=== PATIENT | female | born 1965 | race African-American/Black ===

== ENCOUNTER 2016-10-06 07:21 | Emergency (ER) | payer MEDICAID, OTHER ==
[~2016-10-06] VITALS: Ht 149.9 cm; Wt 71.4 kg
[~2016-10-06 07:21] MED LIST: /OL10DISTA PO; ADVA115A INH; ALBU17IN2 INH; ATEN25TA PO; CELE40TA PO; CLAR10CA3 PO; CLON-412 PO; CYCL5TA PO; FERR325T3 PO; FLEX10TA2 PO; GABA300C2 PO; GLUC500T PO; HYDR50TA70 PO; LISI5TAB PO; MINO50CA PO; MULTIVIT PO; PROAAER PO; PROZ40CA PO; RISP0.5T23 PO; RISP2TAB PO; TRAZ150T PO; VICO5TAB OR; VICOTAB PO; VITA400T15 PO; Voltaren PR; WELL100T2 PO; ZOLO100T PO; albuterol INH
[2016-10-06 08:30] LABS: VENOUS BASE EXCESS 0.2 (-2.0-2.0); VENOUS O2 SATURATION 71.8 % (60.0-80.0); VENOUS PARTIAL PRESSURE CO2 50.3 mmHg (38.0-50.0); VENOUS TOTAL CO2 28.3 MEQ/L (24.0-28.0)
[2016-10-06 08:34] LABS: BASO % 0.4 % (0.0-1.0); EOS # 0.2 K/mm3 (0.0-0.50); EOS % 2.2 % (0.0-3.0); LARGE UNSTAINED CELL # 0.2 K/mm3 (0.0-0.4); LARGE UNSTAINED CELL % 1.7 % (0.0-4.0); LYMPH # 4.1 K/mm3 (1.5-4.5); MEAN CORPUSCULAR HEMOGLOBIN 26.9 pg (27.0-33.0); MEAN CORPUSCULAR HGB CONC 32.9 g/dl (32.0-36.5); MEAN CORPUSCULAR VOLUME 81.8 fl (80.0-96.0); MONO # 0.2 K/mm3 (0.0-0.8); MONO % 2.5 % (0.0-5.0); NEUTROPHILS % 52.2 % (36.0-66.0); PLATELET COUNT, AUTOMATED 261 k/mm3 (150-450); RED CELL DISTRIBUTION WIDTH 13.9 % (11.5-14.5); WHITE BLOOD COUNT 9.5 K/mm3 (4.0-10.0)
[2016-10-06 08:49] LABS: ANION GAP 7 MEQ/L (8-16); BLOOD UREA NITROGEN 16 MG/DL (7-18); CALCIUM LEVEL 9.1 MG/DL (8.5-10.1); CARBON DIOXIDE LEVEL 27 MEQ/L (21-32); CHLORIDE LEVEL 108 MEQ/L (98-107); CREATININE FOR GFR 0.83 MG/DL (0.55-1.02); GLOMERULAR FILTRATION RATE > 60.0 (>58); GLUCOSE, FASTING 120 MG/DL (70-105); POTASSIUM SERUM 3.8 MEQ/L (3.5-5.1); SODIUM LEVEL 142 MEQ/L (136-145)
[2016-10-06 08:50] LABS: METHADONE URINE NEGATIVE (NEGATIVE)
[2016-10-06] MEDS ORDERED: KETOROLAC 30 MG/ML VIAL (J1885) IV ONE (09:15)
[2016-10-06] MEDS ORDERED: NAPR500T PO (10:16)
[2016-10-06 10:32] VITALS: BP 148/98
--- NOTE | 2016-10-06 10:33 | REP ---
CERVICAL SPINE SERIES: Full cervical spine series is performed. There is no compression fracture or malalignment. There is no prevertebral soft tissue swelling. There is moderate spurring of C3-C7 with mild disc space narrowing and subchondral sclerosis at the intervening disc spaces. There is diffuse narrowing and sclerosis at the posterior facet joints. Scattered facet joint spurring is also noted. There is bilateral foraminal narrowing at C5-6 right greater than left. IMPRESSION: Diffuse degenerative changes as above with bilateral foraminal narrowing at C5-6. Signed by Shant Fernandez MD 10/06/2016 03:15 P
--- NOTE | 2016-10-06 10:38 | REP ---
LEFT SHOULDER SERIES: Three views of the left shoulder are performed. There is no acute fracture or dislocation. There is mild narrowing at the acromioclavicular joint with mild spurring. IMPRESSION: Mild degenerative changes acromioclavicular joint. No fracture or dislocation. Signed by hSant Fernandez MD 10/06/2016 03:15 P
== END 2016-10-06 10:33 | disposition home or self-care (01) ==
LOC: M ED 08:01
DX: M54.12 Radiculopathy, cervical region (principal); E11.9 Type 2 diabetes mellitus without complications; F11.10 Opioid abuse, uncomplicated; F17.210 Nicotine dependence, cigarettes, uncomplicated
CPT/HCPCS: 72052; 73030; 80048; 80306; 82803; 83036; 85025; 96374; 99283; J1885

== ENCOUNTER → 2016-10-11 | Outpatient (REF) | payer MEDICAID ==
[~2016-10-11] MED LIST changes: +HYDR-4274 PO; -HYDR50TA70 PO; +NAPR500T PO
[2016-10-11 13:53] LABS: FOLATE 10.6 NG/ML
[2016-10-11 14:05] LABS: FREE T4 1.41 NG/DL (0.76-1.46)
== END ==
LOC: M SFHCADAM 08:28
PROVIDERS: ATTEND Physician Assistant
DX: R20.2 Paresthesia of skin (principal)

== ENCOUNTER → 2016-11-09 | Outpatient (CLI) | payer MEDICAID ==
[~2016-11-09] MED LIST changes: +ASPI81TA18; +ATOR40TA75; +BACT800T5 PO; +E-Z-GAS II EFFERVESCENT PACKET (SODIUM BICARB./CITRIC ACID/SIMETHICONE) As Ordered ONE; +E-Z-HD 98% w/w 340GM SUSP BTL As Ordered ONE; +E-Z-PAQUE 96% w/w SUSP 176GM BTL As Ordered ONE; -HYDR-4274 PO; +HYDR50TA70 PO; +METF500T13; +NICO14DI24; +OMEP40CA2; +PROAAER10; +TRAM50TA2; +VITA200015
--- NOTE | 2016-11-09 17:58 | REP ---
Upper GI air contrast The procedure was performed under the direct supervision of Dr. Fernandez. The images were reviewed with Dr. Fernandez The cook helper fruit film shows no organomegaly or pathological masses. The intestinal gas pattern is nonspecific. Liquid barium and gas producing crystals were given in the erect position as well as liquid barium in the prone oblique position in order to perform a double contrast upper GI examination. Additionally liquid barium was given at the end of the examination in order to perform a small bowel follow-through. The oral and pharyngeal stages of deglutition are unremarkable. Esophageal transport is prompt and efficient and there is no esophagitis or stricture mucosal ring or hiatal hernia. Gastroesophageal reflux is not demonstrated on this examination. The stomach bianchi are normally outlined . The rugal folds are smooth and regular. There is no gastritis neoplasm or ulcer disease. The duodenal bianchi are normally outlined . The mucosal folds are smooth and regular. There is no duodenitis pancreatitis peptic ulcer disease or neoplasm. The visualized portion of the proximal small bowel appears normal in course and caliber. The barium column was followed through the small bowel to the level of the terminal ileum. Small bowel transit time is approximately 1 hour. During fluoroscopy gentle palpation shows all loops are freely movable and pliable. There are no fixed or angulated loops. The small bowel mucosal pattern is normal in course and caliber. There is no transition to suggest a partial small-bowel obstruction. Spot filming of the terminal ileum shows it to be unremarkable. Impression: Essentially unremarkable double contrast upper GI and small bowel follow-through examination. 3 minutes and 25 seconds of fluoro time was utilized for this procedure. Reviewed by RANDAL Camacho 11/09/2016 04:00 PSigned by Shant Fernandez MD 11/09/2016 05:42 P
== END ==
LOC: M RAD 09:07
PROVIDERS: ATTEND Surgery
DX: R10.11 Right upper quadrant pain (principal)

== ENCOUNTER 2017-01-16 19:45 | Emergency (ER) | payer MEDICAID, OTHER ==
[~2017-01-16] VITALS: Ht 149.9 cm; Wt 70.9 kg
[~2017-01-16 19:45] MED LIST changes: -ASPI81TA18; -ATOR40TA75; -BACT800T5 PO; -E-Z-GAS II EFFERVESCENT PACKET (SODIUM BICARB./CITRIC ACID/SIMETHICONE) As Ordered ONE; -E-Z-HD 98% w/w 340GM SUSP BTL As Ordered ONE; -E-Z-PAQUE 96% w/w SUSP 176GM BTL As Ordered ONE; -METF500T13; -NICO14DI24; -OMEP40CA2; -PROAAER10; -TRAM50TA2; -VITA200015
[2017-01-16 19:48] VITALS: BP 141/82
[2017-01-16] MEDS ORDERED: TRAM50TA2 (19:54)
[2017-01-16] MEDS ORDERED: METF500T13 (19:54)
[2017-01-16] MEDS ORDERED: PROAAER10 (19:54)
[2017-01-16] MEDS ORDERED: ASPI81TA18 (19:54)
[2017-01-16] MEDS ORDERED: NICO14DI24 (19:54)
[2017-01-16] MEDS ORDERED: VITA200015 (19:54)
[2017-01-16] MEDS ORDERED: OMEP40CA2 (19:54)
[2017-01-16] MEDS ORDERED: ATOR40TA75 (19:54)
[2017-01-16] MEDS ORDERED: LIDOCAINE W/EPINEPHRINE 1% 20ML VIAL As Ordered ONE (22:43)
[2017-01-16] MEDS ORDERED: LIDOCAINE W/EPINEPHRINE 1% 20ML VIAL SC ONE (22:45)
[2017-01-16] MEDS ORDERED: IBUPROFEN 800 MG TAB PO ONE (23:00)
[2017-01-16] MEDS ORDERED: BACT800T5 PO (23:00)
[2017-01-16] MEDS ORDERED: BACTRIM 160MG/800MG DS TAB PO ONE (23:00)
== END 2017-01-16 23:25 | disposition home or self-care (01) ==
LOC: M ED 19:45
DX: L02.415 Cutaneous abscess of right lower limb (principal); Z72.0 Tobacco use

== ENCOUNTER → 2017-03-12 | Outpatient (CLI) | payer OTHER ==
[~2017-03-12] MED LIST changes: +ASPI81TA18; +ATOR40TA75; +BACT800T5 PO; +METF500T13; +NICO14DI24; +OMEP40CA2; +PROAAER10; +TRAM50TA2; +VITA200015
== END ==
LOC: M LAB 08:58
PROVIDERS: ATTEND Physician Assistant
DX: E11.9 Type 2 diabetes mellitus without complications (principal); E78.4 Other hyperlipidemia

== ENCOUNTER 2017-04-19 08:55 | Day surgery (SDC) | payer OTHER ==
[2017-04-19] MEDS: NS 1,000 ML IV (09:15)
[2017-04-19] MEDS ORDERED: PROPOFOL 200 MG/20 ML VIAL As Ordered (10:06)
== END 2017-04-19 10:55 | disposition home or self-care (01) ==
LOC: M OPP 08:55
DX: R10.13 Epigastric pain (principal); R14.0 Abdominal distension (gaseous); Z80.0 Family history of malignant neoplasm of digestive organs; I10 Essential (primary) hypertension; E11.9 Type 2 diabetes mellitus without complications; E78.5 Hyperlipidemia, unspecified; D64.9 Anemia, unspecified; F41.9 Anxiety disorder, unspecified; F32.9 Major depressive disorder, single episode, unspecified; G47.30 Sleep apnea, unspecified; M06.9 Rheumatoid arthritis, unspecified; J45.901 Unspecified asthma with (acute) exacerbation; G43.909 Migraine, unspecified, not intractable, without status migrainosus; Z79.82 Long term (current) use of aspirin; Z79.84 Long term (current) use of oral hypoglycemic drugs; Z79.899 Other long term (current) drug therapy; Z88.0 Allergy status to penicillin
CPT/HCPCS: 45378

== ENCOUNTER → 2017-05-11 | Outpatient (REF) | payer OTHER ==
[2017-05-11 13:43] LABS: APPEARANCE, URINE CLEAR (CLEAR); BACTERIA, URINE AUTO NEGATIVE (NEGATIVE); BILIRUBIN, URINE AUTO NEGATIVE (NEGATIVE); BLOOD, URINE BLOOD NEGATIVE (NEGATIVE); COLOR, URINE YELLOW (YELLOW); GLUCOSE, URINE (UA) AUTO NEGATIVE (NEGATIVE); KETONE, URINE AUTO NEGATIVE (NEGATIVE); LEUKOCYTE ESTERASE, URINE AUTO NEGATIVE (NEGATIVE); MUCUS, URINE SMALL (NEGATIVE); NITRITE, URINE AUTO NEGATIVE (NEGATIVE); PROTEIN, URINE AUTO NEGATIVE (NEGATIVE); RBC, URINE AUTO 0 /HPF (0-3); SPECIFIC GRAVITY URINE AUTO 1.019 (1.002-1.035); SQUAMOUS EPITHELIAL CELL UR AU 0 /HPF (0-6); UROBILINOGEN, URINE AUTO 0.2 mg/dL (0.0-2.0); WBC, URINE AUTO 0 /HPF (0-3)
== END ==
LOC: M SFHCADAM 08:32
DX: N39.3 Stress incontinence (female) (male) (principal)
CPT/HCPCS: 81001

== ENCOUNTER → 2017-08-16 | Outpatient (REF) | payer OTHER ==
[2017-08-16 18:47] LABS: APPEARANCE, URINE HAZY (CLEAR); BACTERIA, URINE AUTO NEGATIVE (NEGATIVE); BILIRUBIN, URINE AUTO NEGATIVE (NEGATIVE); BLOOD, URINE BLOOD NEGATIVE (NEGATIVE); COLOR, URINE YELLOW (YELLOW); GLUCOSE, URINE (UA) AUTO NEGATIVE (NEGATIVE); KETONE, URINE AUTO NEGATIVE (NEGATIVE); LEUKOCYTE ESTERASE, URINE AUTO NEGATIVE (NEGATIVE); MUCUS, URINE SMALL (NEGATIVE); NITRITE, URINE AUTO NEGATIVE (NEGATIVE); PROTEIN, URINE AUTO NEGATIVE (NEGATIVE); RBC, URINE AUTO 1 /HPF (0-3); SPECIFIC GRAVITY URINE AUTO 1.016 (1.002-1.035); SQUAMOUS EPITHELIAL CELL UR AU 1 /HPF (0-6); UROBILINOGEN, URINE AUTO 0.2 mg/dL (0.0-2.0); WBC, URINE AUTO 1 /HPF (0-3)
== END ==
LOC: M SMT 17:17
DX: R39.15 Urgency of urination (principal)

== ENCOUNTER → 2017-08-17 | Outpatient (REF) | payer OTHER ==
[2017-08-17 19:50] LABS: ERYTHROCYTE SEDIMENTATION RATE 3 mm/hr (0-30)
[2017-08-17 19:51] LABS: FOLATE 12.5 NG/ML; TOTAL 25(OH) VITAMIN D 20.2 NG/ML (30.0-100.0); VITAMIN B12 LEVEL 618 PG/ML
[2017-08-17 22:05] LABS: C REACTIVE PROTEIN QUANTITATIV 1.56 MG/DL (0.00-0.30); RHEUMATOID FACTOR QUANT < 10.0 IU/ML (<15.0)
[2017-08-17 22:05] LABS: CPK CREATINE PHOSPHOKINASE 113 U/L (26-192)
[2017-08-22 14:16] LABS: ANA (HEP2) Negative (.); HLA-B27 Negative (.); Lyme Disease IgG/IgM Antibodie <0.91 ISR (0.00-0.90); Lyme Disease IgM Ab Quantitati <0.80 index (0.00-0.79)
== END ==
LOC: M SFHCADAM 13:59
DX: M25.50 Pain in unspecified joint (principal); M54.5 Low back pain

== ENCOUNTER 2017-09-26 20:59 | Emergency (ER) | payer OTHER ==
[2017-09-26 22:01] LABS: BASO % 0.3 % (0.0-1.0); EOS # 0.1 10^3/uL (0.0-0.50); EOS % 0.7 % (0.0-3.0); HEMATOCRIT 41.4 % (36.0-47.0); HEMOGLOBIN 13.4 g/dl (12.0-15.5); IMMATURE GRANULOCYTE % 0.8 % (0-3.0); LYMPH # 2.4 10^3/uL (1.5-4.5); LYMPH % 17.9 % (24.0-44.0); MEAN CORPUSCULAR HEMOGLOBIN 25.3 pg (27.0-33.0); MEAN CORPUSCULAR HGB CONC 32.4 g/dl (32.0-36.5); MEAN CORPUSCULAR VOLUME 78.3 fl (80.0-96.0); MONO # 0.8 10^3/uL (0.0-0.8); NEUTROPHILS # 9.9 10^3/uL (1.8-7.7); NEUTROPHILS % 74.3 % (36.0-66.0); PLATELET COUNT, AUTOMATED 229 10^3/uL (150-450); RED BLOOD COUNT 5.29 10^6/uL (4.00-5.40); RED CELL DISTRIBUTION WIDTH 15.4 % (11.5-14.5); WHITE BLOOD COUNT 13.3 10^3/uL (4.0-10.0)
[2017-09-26] MEDS ORDERED: ISOVUE-370 76% 100ML VIAL (Q9967) As Ordered (22:03)
[2017-09-26] MEDS: NS 1,000 ML IV ×2 (22:04→23:53)
[2017-09-26] MEDS: MORPHINE 2 MG/ML 1ML SYRINGE (J2270) IV ×2 (22:05→23:53)
[2017-09-26 22:15] LABS: CONTROL LINE HCG INT CTR LINE PRESENT; HCG, SERUM QUALITATIVE NEGATIVE (NEGATIVE)
[2017-09-26] MEDS: ACETAMINOPHEN TAB 650MG DOSE (2X325MG) PO (22:21)
[2017-09-26 22:22] LABS: ALBUMIN 3.5 GM/DL (3.2-5.2); ALBUMIN/GLOBULIN RATIO 0.83 (1.00-1.93); ALKALINE PHOSPHATASE 113 U/L (45-117); ALT/SGPT 29 U/L (12-78); ANION GAP 7 MEQ/L (8-16); AST/SGOT 35 U/L (7-37); BILIRUBIN,DIRECT 0.1 MG/DL (0.0-0.2); BILIRUBIN,TOTAL 0.4 MG/DL (0.2-1.0); BLOOD UREA NITROGEN 14 MG/DL (7-18); CALCIUM LEVEL 8.8 MG/DL (8.5-10.1); CARBON DIOXIDE LEVEL 28 MEQ/L (21-32); CHLORIDE LEVEL 102 MEQ/L (98-107); CREATININE FOR GFR 0.78 MG/DL (0.55-1.30); GLOMERULAR FILTRATION RATE > 60.0 (>51); GLUCOSE, FASTING 122 MG/DL (70-100); LIPASE 176 U/L (73-393); POTASSIUM SERUM 3.9 MEQ/L (3.5-5.1); SODIUM LEVEL 137 MEQ/L (136-145); TOTAL PROTEIN 7.7 GM/DL (6.4-8.2)
[2017-09-26 22:23] LABS: LACTIC ACID SEPSIS PROTOCOL 0.9 MMOL/L (0.4-2.0)
[2017-09-26 23:44] LABS: CHLAMYDIA DNA AMPLIFICATION NEGATIVE (NEGATIVE); GC DNA AMPLIFICATION NEGATIVE (NEGATIVE)
[2017-09-26] MEDS: KETOROLAC 30 MG/ML VIAL (J1885) IV (23:53)
[2017-09-27 02:03] LABS: KETONE, URINE AUTO RFX NEGATIVE (NEGATIVE); LEUKOCYTE ESTERASE UR AUTO RFX NEGATIVE (NEGATIVE); NITRITE, URINE AUTO RFX NEGATIVE (NEGATIVE); RBC, URINE AUTO RFX 0 /HPF (0-3); SPECIFIC GRAVITY UR AUTO RFX 1.023 (1.002-1.035); SQUAM EPITHELIAL CELL UR AURFX 0 /HPF (0-6); WBC, URINE AUTO RFX 0 /HPF (0-3)
== END 2017-09-27 02:52 | disposition home or self-care (01) ==
LOC: M ED 20:59
DX: K52.9 Noninfective gastroenteritis and colitis, unspecified (principal); R16.0 Hepatomegaly, not elsewhere classified; K76.0 Fatty (change of) liver, not elsewhere classified; E11.9 Type 2 diabetes mellitus without complications; J45.909 Unspecified asthma, uncomplicated; I10 Essential (primary) hypertension; E78.5 Hyperlipidemia, unspecified; F90.9 Attention-deficit hyperactivity disorder, unspecified type; F33.9 Major depressive disorder, recurrent, unspecified; F41.9 Anxiety disorder, unspecified; Z87.19 Personal history of other diseases of the digestive system; Z98.890 Other specified postprocedural states; Z87.891 Personal history of nicotine dependence; Z88.0 Allergy status to penicillin
CPT/HCPCS: Q9967

== ENCOUNTER → 2017-10-29 | Outpatient (REF) | payer OTHER ==
[2017-10-29 16:01] LABS: BASO % 0.3 % (0.0-1.0); EOS # 0.1 10^3/uL (0.0-0.50); EOS % 1.1 % (0.0-3.0); HEMATOCRIT 46.1 % (36.0-47.0); HEMOGLOBIN 14.4 g/dl (12.0-15.5); IMMATURE GRANULOCYTE % 0.3 % (0-3.0); LYMPH # 4.1 10^3/uL (1.5-4.5); MEAN CORPUSCULAR HEMOGLOBIN 25.4 pg (27.0-33.0); MEAN CORPUSCULAR HGB CONC 31.2 g/dl (32.0-36.5); MEAN CORPUSCULAR VOLUME 81.2 fl (80.0-96.0); MONO # 0.6 10^3/uL (0.0-0.8); MONO % 4.9 % (0.0-5.0); NEUTROPHILS # 6.5 10^3/uL (1.8-7.7); NEUTROPHILS % 57.4 % (36.0-66.0); PLATELET COUNT, AUTOMATED 267 10^3/uL (150-450); RED BLOOD COUNT 5.68 10^6/uL (4.00-5.40); RED CELL DISTRIBUTION WIDTH 15.9 % (11.5-14.5); WHITE BLOOD COUNT 11.3 10^3/uL (4.0-10.0)
[2017-10-29 16:10] LABS: RHEUMATOID FACTOR QUANT < 10.0 IU/ML (<15.0)
[2017-10-29 16:10] LABS: C REACTIVE PROTEIN QUANTITATIV 1.58 MG/DL (0.00-0.30)
[2017-10-29 16:27] LABS: ERYTHROCYTE SEDIMENTATION RATE 5 mm/hr (0-30)
== END ==
LOC: M LABDRAW1 10:49
DX: M51.36 Other intervertebral disc degeneration, lumbar region (principal)

== ENCOUNTER → 2017-11-05 | Outpatient (REF) ==
[2017-11-05 11:09] LABS: RUBELLA IgG QUALITATIVE IMMUNE (IMMUNE)
== END ==
LOC: M LAB 09:34
DX: Z00.00 Encounter for general adult medical examination without abnormal findings (principal)

== ENCOUNTER → 2017-11-08 | Outpatient (REF) | payer OTHER ==
[2017-11-08 13:54] LABS: ESTIMATED AVERAGE GLUCOSE 151 MG/DL (60-110); HEMOGLOBIN A1c 6.9 %
[2017-11-08 14:25] LABS: ALBUMIN 3.6 GM/DL (3.2-5.2); ALBUMIN/GLOBULIN RATIO 0.97 (1.00-1.93); ALKALINE PHOSPHATASE 95 U/L (45-117); ALT/SGPT 25 U/L (12-78); ANION GAP 6 MEQ/L (8-16); AST/SGOT 10 U/L (7-37); BILIRUBIN,TOTAL 0.4 MG/DL (0.2-1.0); BLOOD UREA NITROGEN 19 MG/DL (7-18); CALCIUM LEVEL 9.2 MG/DL (8.5-10.1); CARBON DIOXIDE LEVEL 29 MEQ/L (21-32); CHLORIDE LEVEL 106 MEQ/L (98-107); CREATININE FOR GFR 0.82 MG/DL (0.55-1.30); GLOMERULAR FILTRATION RATE > 60.0 (>51); GLUCOSE, FASTING 99 MG/DL (70-100); POTASSIUM SERUM 4.3 MEQ/L (3.5-5.1); SODIUM LEVEL 141 MEQ/L (136-145); TOTAL PROTEIN 7.3 GM/DL (6.4-8.2)
== END ==
LOC: M SFHCADAM 08:35
DX: E11.9 Type 2 diabetes mellitus without complications (principal); I10 Essential (primary) hypertension
CPT/HCPCS: 80053

== ENCOUNTER 2018-01-10 07:29 | Emergency (ER) | payer OTHER ==
[2018-01-10] MEDS: IBUPROFEN 800 MG TAB PO (08:03)
[2018-01-10] MEDS: FUROSEMIDE 20 MG/2 ML VIAL (J1940) IV (09:07)
[2018-01-10 09:10] LABS: BASO % 0.3 % (0.0-1.0); EOS # 0.2 10^3/uL (0.0-0.50); EOS % 1.4 % (0.0-3.0); HEMATOCRIT 43.1 % (36.0-47.0); HEMOGLOBIN 13.7 g/dl (12.0-15.5); IMMATURE GRANULOCYTE % 0.3 % (0-3.0); LYMPH # 3.4 10^3/uL (1.5-4.5); LYMPH % 28.1 % (24.0-44.0); MEAN CORPUSCULAR HEMOGLOBIN 24.9 pg (27.0-33.0); MEAN CORPUSCULAR HGB CONC 31.8 g/dl (32.0-36.5); MEAN CORPUSCULAR VOLUME 78.2 fl (80.0-96.0); MONO # 0.7 10^3/uL (0.0-0.8); MONO % 5.5 % (0.0-5.0); NEUTROPHILS # 7.8 10^3/uL (1.8-7.7); NEUTROPHILS % 64.4 % (36.0-66.0); PLATELET COUNT, AUTOMATED 272 10^3/uL (150-450); RED BLOOD COUNT 5.51 10^6/uL (4.00-5.40); RED CELL DISTRIBUTION WIDTH 14.8 % (11.5-14.5); WHITE BLOOD COUNT 12.1 10^3/uL (4.0-10.0)
[2018-01-10 09:36] LABS: ANION GAP 10 MEQ/L (8-16); BLOOD UREA NITROGEN 10 MG/DL (7-18); CALCIUM LEVEL 8.9 MG/DL (8.5-10.1); CARBON DIOXIDE LEVEL 27 MEQ/L (21-32); CHLORIDE LEVEL 107 MEQ/L (98-107); CPK CREATINE PHOSPHOKINASE 395 U/L (26-192); CREATININE FOR GFR 0.72 MG/DL (0.55-1.30); GLOMERULAR FILTRATION RATE > 60.0 (>51); GLUCOSE, FASTING 87 MG/DL (70-100); MB/CK RELATIVE INDEX 0.43 (< OR =4); NT-PRO BNP 118 PG/ML (<125); POTASSIUM SERUM 3.8 MEQ/L (3.5-5.1); SODIUM LEVEL 144 MEQ/L (136-145); TROPONIN I < 0.02 NG/ML (< 0.10)
[2018-01-10 09:46] LABS: INFLUENZA A AMPLIFICATION NEGATIVE (NEGATIVE); INFLUENZA B AMPLIFICATION NEGATIVE (NEGATIVE)
[2018-01-10] MEDS: ACETAMINOPHEN 325 MG TAB PO (10:51)
== END 2018-01-10 10:59 | disposition home or self-care (01) ==
LOC: M ED 07:29
DX: J06.9 Acute upper respiratory infection, unspecified (principal); I51.7 Cardiomegaly; J81.1 Chronic pulmonary edema; I10 Essential (primary) hypertension; E11.9 Type 2 diabetes mellitus without complications; J45.909 Unspecified asthma, uncomplicated; E78.00 Pure hypercholesterolemia, unspecified; K21.9 Gastro-esophageal reflux disease without esophagitis; F43.10 Post-traumatic stress disorder, unspecified; F41.9 Anxiety disorder, unspecified; F33.9 Major depressive disorder, recurrent, unspecified; Z79.899 Other long term (current) drug therapy; Z79.82 Long term (current) use of aspirin; Z79.84 Long term (current) use of oral hypoglycemic drugs; Z88.0 Allergy status to penicillin; F17.210 Nicotine dependence, cigarettes, uncomplicated
CPT/HCPCS: J1940

== ENCOUNTER 2018-02-28 16:00 | Outpatient (RCR) | payer OTHER | END 2018-03-15 | LOC: M PT 16:00 | DX: M72.2 Plantar fascial fibromatosis (principal) | CPT/HCPCS: 97140 ==

== ENCOUNTER → 2018-04-29 | Outpatient (REF) | payer OTHER ==
[~2018-04-29] MED LIST changes: -ASPI81TA18; +ASPI81TA52 PO; -ATOR40TA75; +ATOR40TA75 PO; +BANO25TA PO; +BENZ200C70 PO; +CHLO25TA PO; +DOXY100C37; -METF500T13; +METF500T13 PO; +MUCI600T37 PO; +NAPR-50 PO; -NAPR500T PO; +NICO21DI31; +OLAN15TA PO; -OMEP40CA2; +OMEP40CA2 PO; +PRED20TA PO; -PROAAER10; +PROAAER10 INH; +QUET1TAB7 PO; +QUET1TAB8 PO; +SERT25TA PO; +SPIR-10 PO; +VARE05TA PO; -VITA200015; +VITA200015 PO
== END ==
LOC: M LAB REF 13:16
PROVIDERS: ATTEND Physician Assistant Medical
DX: J02.0 Streptococcal pharyngitis (principal)

== ENCOUNTER → 2018-04-29 | Outpatient (CLI) | payer OTHER ==
[~2018-04-29] MED LIST changes: +HYDR-3713 PO
[2018-04-29 13:51] LABS: HEMATOCRIT 44.6 % (36.0-47.0); HEMOGLOBIN 14.1 g/dl (12.0-15.5); MEAN CORPUSCULAR HEMOGLOBIN 24.6 pg (27.0-33.0); MEAN CORPUSCULAR HGB CONC 31.6 g/dl (32.0-36.5); MEAN CORPUSCULAR VOLUME 77.8 fl (80.0-96.0); PLATELET COUNT, AUTOMATED 232 10^3/uL (150-450); RED BLOOD COUNT 5.73 10^6/uL (4.00-5.40); WHITE BLOOD COUNT 9.6 10^3/uL (4.0-10.0)
[2018-04-29 14:26] LABS: BLOOD UREA NITROGEN 13 MG/DL (7-18); CARBON DIOXIDE LEVEL 27 MEQ/L (21-32); CHLORIDE LEVEL 101 MEQ/L (98-107); GLOMERULAR FILTRATION RATE > 60.0 (>51); GLUCOSE, FASTING 99 MG/DL (70-100); POTASSIUM SERUM 4.2 MEQ/L (3.5-5.1); SODIUM LEVEL 136 MEQ/L (136-145)
== END ==
LOC: M LAB 13:17
PROVIDERS: ATTEND Podiatrist Foot & Ankle Surgery
DX: M72.2 Plantar fascial fibromatosis (principal)

== ENCOUNTER 2018-05-08 07:49 | Day surgery (SDC) | payer OTHER ==
[~2018-05-08] VITALS: Ht 175.3 cm; Wt 77.0 kg
[~2018-05-08 07:49] MED LIST changes: +CLINDAMYCIN 600 MG in APPROPRIATE DILUENT 1 EA IV ONE; -HYDR-3713 PO; +LR 1,000 ML IV ONE
[2018-05-08] MEDS ORDERED: LIDOCAINE 1% MDV 20ML VIAL As Ordered ONE (07:50)
[2018-05-08] MEDS ORDERED: dexameTHASONE 4 MG/ML 1ML VIAL (J1100) As Ordered ONE ×2 (07:50→10:18)
[2018-05-08] MEDS ORDERED: BUPIVACAINE HCL 0.5% 30 ML VIAL As Ordered ONE (07:50)
[2018-05-08] MEDS ORDERED: LIDOCAINE 2% INJ 100 MG/5 ML SDV (FOR ANES.) As Ordered ONE (09:32)
[2018-05-08] MEDS ORDERED: fentaNYL 100 MCG/2 ML INJECTION (J3010) As Ordered ONE (09:32)
[2018-05-08] MEDS ORDERED: PROPOFOL 200 MG/20 ML VIAL As Ordered ONE ×2 (09:32→10:30)
[2018-05-08] MEDS ORDERED: MIDAZOLAM INJ 2 MG/2 ML VIAL (J2250) As Ordered ONE (09:33)
[2018-05-08] MEDS ORDERED: TRIAMCINOLONE ACETONIDE SUSP 40 MG/ML VIAL (J3301) As Ordered ONE (10:05)
[2018-05-08] MEDS ORDERED: HYDR-3713 PO (10:57)
[2018-05-08 11:03] VITALS: BP 152/87
--- NOTE | 2018-05-08 13:34 | RO ---
DATE OF PROCEDURE: 05/08/2018 PREPROCEDURE DIAGNOSIS: Bilateral plantar fasciitis and fibroma. POSTPROCEDURE DIAGNOSIS: Bilateral plantar fasciitis and fibroma. PROCEDURE: Bilateral endoscopic plantar fascial release with injection of fibroma right foot. SURGEON: Dr. Jd Barry APPLICATIONS PROJECT MANAGER: None. ANESTHESIA: Monitored anesthesia care with preoperative injection of 30 mL of 1:1 mixture of 1% lidocaine plain and 1/2% Marcaine plain. ESTIMATED BLOOD LOSS: Minimal. MATERIALS: #4-0 nylon. INJECTABLES: 1 mL of Decadron, 4 mg per mL, on both feet; Kenalog 1 mL to fibroma on right. COMPLICATIONS: None. CONDITION: Stable. DESCRIPTION OF PROCEDURE: Teresa Dorantes is a 53-year-old female who presents to [facility] with chronic plantar fasciitis. She has undergone numerous conservative therapies without relief. She also has a fibroma of her right arch. She presents today for surgical correction. The patient site and side were identified and marked in the preoperative area. Consent was reviewed and obtained. The risks, complications and alternatives to the procedure were explained to the patient in detail and all questions were answered. The patient was brought to the operating room and placed on the operating room in supine position. Monitored anesthesia care was delivered by the anesthesia department. Preoperative injection of 30 mL of a 1:1 mixture of 1% lidocaine plain and 0.50% Marcaine plain were injected to both feet. The feet were prepped and draped in normal sterile fashion. The patient received clindamycin preoperatively. Tourniquet were applied to both ankles and inflated to 250 mmHg. A medial stab incision was made at the medial aspect of each ankle to allow creation of the portal. Hemostat was used to find the inferior margin of the plantar fascia. Next, the trocar and cannula were inserted and a lateral portal created allowing exit for the trocar. The trocar was removed leaving cannula in place. The camera was inserted through the lateral portal. The plantar fascia was visualized. Under visualization, the medial 2/3 of the plantar fascia were released using the Endotrac blade, leaving the lateral 1/3 intact. Following this, the camera and cannula were removed. The site was irrigated with saline. Incisions were repaired with #4-0 nylon. 1mL of Decadron was injected in both surgical sites. 1 mL Kenalog was injected to the fibroma on the right arch. Sterile dressings were applied. Tourniquets were deflated. The patient was brought to the post anesthesia care unit (PACU) with vital signs stable and neurovascular status intact. She will be weight bearing as tolerated. She will follow up in the office in two days.
== END 2018-05-08 12:20 | disposition home or self-care (01) ==
LOC: M SDC 07:49
PROVIDERS: ATTEND Podiatrist Foot & Ankle Surgery
DX: M72.2 Plantar fascial fibromatosis (principal); E11.9 Type 2 diabetes mellitus without complications; I10 Essential (primary) hypertension; E78.5 Hyperlipidemia, unspecified; K21.9 Gastro-esophageal reflux disease without esophagitis; Z79.82 Long term (current) use of aspirin; J45.909 Unspecified asthma, uncomplicated; Z79.84 Long term (current) use of oral hypoglycemic drugs; Z88.0 Allergy status to penicillin; F17.210 Nicotine dependence, cigarettes, uncomplicated
CPT/HCPCS: 20550; 29893; C1713; J1100; J2250; J3010; J3301

== ENCOUNTER → 2018-08-09 | Outpatient (REF) | payer OTHER ==
[~2018-08-09] MED LIST changes: -/OL10DISTA PO; -CLINDAMYCIN 600 MG in APPROPRIATE DILUENT 1 EA IV ONE; -CYCL5TA PO; +CYCL5TAB5 PO; +HYDR-3713 PO; -LR 1,000 ML IV ONE; -MINO50CA PO; +MINO50CA27 PO; -NAPR-50 PO; +NAPR-837 PO; -SERT25TA PO; +SERT25TA85 PO; +ZYPR1TAB4 PO
== END ==
LOC: M SFHCPLAZ 18:13
PROVIDERS: ATTEND Dermatology
DX: R21 Rash and other nonspecific skin eruption (principal)

== ENCOUNTER 2018-10-29 23:43 | Emergency (ER) | payer OTHER ==
[~2018-10-29] VITALS: Ht 149.9 cm; Wt 80.0 kg
[2018-10-29 23:44] VITALS: BP 125/62
== END 2018-10-30 01:00 | disposition left against medical advice (07) ==
LOC: M ED 23:43
DX: Z53.21 Procedure and treatment not carried out due to patient leaving prior to being seen by health care provider (principal)

== ENCOUNTER → 2019-03-17 | Outpatient (CLI) | payer BC ==
[~2019-03-17] MED LIST changes: -OMEP40CA2 PO; +OMEP40CA97 PO
--- NOTE | 2019-03-17 12:00 | REP ---
NUCLEAR GASTRIC EMPTYING SCAN: Following the oral administration of 1.1 millicuries technetium 99m sulfur colloid in two scrambled eggs and 6 ounces of water, multiple images of the upper abdomen were performed in the anterior and posterior projections for 90 minutes. Gastric activity is measured. At the end of 90 minutes, 62% of the ingested activity is emptied from the stomach yielding a t-1/2 of 45 minutes, which is normal. IMPRESSION: Normal gastric emptying. Electronically Signed by Shant Fernandez MD 03/17/2019 12:01 P
== END ==
LOC: M RAD 09:18
PROVIDERS: ATTEND Surgery
DX: K31.84 Gastroparesis (principal)
CPT/HCPCS: 78264; A9541

== ENCOUNTER → 2019-03-24 | Outpatient (REF) | payer BC | LOC: M LAB REF 15:05 | PROVIDERS: ATTEND Surgery | DX: R19.7 Diarrhea, unspecified (principal) ==

== ENCOUNTER → 2019-05-08 | Outpatient (CLI) | payer BC ==
[2019-05-08 14:40] LABS: HEMOGLOBIN 13.1 g/dl (12.0-15.5); MEAN CORPUSCULAR HEMOGLOBIN 23.9 pg (27.0-33.0); MEAN CORPUSCULAR HGB CONC 29.8 g/dl (32.0-36.5); MEAN CORPUSCULAR VOLUME 80.4 fl (80.0-96.0); PLATELET COUNT, AUTOMATED 252 10^3/uL (150-450); RED BLOOD COUNT 5.47 10^6/uL (4.00-5.40); WHITE BLOOD COUNT 10.3 10^3/uL (4.0-10.0)
[2019-05-08 14:59] LABS: ALBUMIN 3.7 GM/DL (3.2-5.2); ALT/SGPT 24 U/L (12-78); AMYLASE 92 U/L (25-115); BILIRUBIN,TOTAL 0.3 MG/DL (0.2-1.0); BLOOD UREA NITROGEN 17 MG/DL (7-18); CARBON DIOXIDE LEVEL 29 MEQ/L (21-32); CHLORIDE LEVEL 105 MEQ/L (98-107); CREATININE FOR GFR 0.83 MG/DL (0.55-1.30); GLOMERULAR FILTRATION RATE > 60.0 (>51); GLUCOSE, FASTING 93 MG/DL (70-100); LIPASE 162 U/L (73-393); POTASSIUM SERUM 3.9 MEQ/L (3.5-5.1); SODIUM LEVEL 141 MEQ/L (136-145); TOTAL PROTEIN 7.3 GM/DL (6.4-8.2)
== END ==
LOC: M LAB 13:38
PROVIDERS: ATTEND Surgery
DX: R10.84 Generalized abdominal pain (principal); R19.7 Diarrhea, unspecified

== ENCOUNTER → 2019-07-25 | Outpatient (REF) | payer MEDICAID ==
[~2019-07-25] MED LIST changes: +QUET100T2 PO; -QUET1TAB8 PO
[2019-07-25 12:58] LABS: HEMOGLOBIN 14.6 g/dl (12.0-15.5); MEAN CORPUSCULAR HEMOGLOBIN 25.7 pg (27.0-33.0); MEAN CORPUSCULAR HGB CONC 31.7 g/dl (32.0-36.5); MEAN CORPUSCULAR VOLUME 80.8 fl (80.0-96.0); PLATELET COUNT, AUTOMATED 297 10^3/uL (150-450); RED BLOOD COUNT 5.69 10^6/uL (4.00-5.40); WHITE BLOOD COUNT 12.5 10^3/uL (4.0-10.0)
[2019-07-25 13:23] LABS: HEMOGLOBIN A1c 6.9 %
[2019-07-25 13:34] LABS: ALBUMIN 3.7 GM/DL (3.2-5.2); ALT/SGPT 25 U/L (12-78); BILIRUBIN,TOTAL 0.4 MG/DL (0.2-1.0); BLOOD UREA NITROGEN 21 MG/DL (7-18); CARBON DIOXIDE LEVEL 26 MEQ/L (21-32); CHLORIDE LEVEL 106 MEQ/L (98-107); CHOLESTEROL LEVEL 218 MG/DL (<200); CHOLESTEROL RISK RATIO 4.037 (<5); CREATININE FOR GFR 0.91 MG/DL (0.55-1.30); FREE T4 1.48 NG/DL (0.76-1.46); GLOMERULAR FILTRATION RATE > 60.0 (>51); GLUCOSE, FASTING 118 MG/DL (70-100); HDL CHOLESTEROL 54 MG/DL (>40); LDL CHOLESTEROL 142 MG/DL (<100); NON-HDL-C 164 MG/DL; POTASSIUM SERUM 4.3 MEQ/L (3.5-5.1); SODIUM LEVEL 138 MEQ/L (136-145); TOTAL PROTEIN 7.7 GM/DL (6.4-8.2); TRIGLYCERIDES LEVEL 111 MG/DL (<150)
[2019-07-25 13:36] LABS: TOTAL 25(OH) VITAMIN D 19.7 NG/ML (30.0-100.0)
[2019-07-25 13:55] LABS: MALB URINE SIEMENS 11.1 MG/L; MAU/CREAT RATIO 4.9 MCG/MG (0.0-30.0)
== END ==
LOC: M SFHCADAM 09:25
PROVIDERS: ATTEND Physician Assistant
DX: F17.218 Nicotine dependence, cigarettes, with other nicotine-induced disorders (principal); I10 Essential (primary) hypertension; E11.9 Type 2 diabetes mellitus without complications; J45.30 Mild persistent asthma, uncomplicated

== ENCOUNTER 2020-08-14 08:08 | Inpatient (IN) | payer MEDICAID, OTHER ==
[~2020-08-14] VITALS: Ht 149.9 cm; Wt 75.5 kg
[~2020-08-14 08:08] MED LIST changes: +NICO1DIS12; -NICO21DI31; -QUET1TAB7 PO; +QUET25TA3 PO
[2020-08-14] MEDS ORDERED: methylPREDNISolone 125MG 2ML VIAL IV ONE (08:20)
[2020-08-14] MEDS: COMBIVENT RESPIMAT 100-20MCG INHALER 4GM INH SCH ×3 (08:28→09:33)
--- NOTE | 2020-08-14 08:47 | REP ---
INDICATION: Coronavirus workup COMPARISON: 01/10/2018 TECHNIQUE: Portable AP view of the chest FINDINGS: Subtle scattered primarily perihilar and lower lobe airspace disease suggesting viral pneumonia. Clinical correlation is recommended. No discrete focal consolidation, effusion, or pneumothorax. Skeletal structures intact. Cardiac silhouette is within normal limits for portable technique. IMPRESSION: Cannot exclude subtle patchy bilateral airspace disease raising the possibility of viral pneumonia/COVID-19 disease. Consider noncontrast chest CT for further investigation if warranted. <Electronically signed by Kyle Mcgraw > 08/14/20 0821
[2020-08-14 08:56] LABS: BASO % 0.5 % (0.0-1.0); EOS # 0.1 10^3/uL (0.0-0.5); EOS % 0.9 % (0.0-3.0); HEMATOCRIT 46.7 % (36.0-47.0); HEMOGLOBIN 14.8 g/dl (12.0-15.5); LYMPH # 2.8 10^3/uL (1.5-5.0); MEAN CORPUSCULAR HGB CONC 31.7 g/dl (32.0-36.5); MONO # 0.5 10^3/uL (0.0-0.8); MONO % 5.4 % (2.0-8.0); NEUTROPHILS # 5.4 10^3/uL (1.5-8.5); PLATELET COUNT, AUTOMATED 246 10^3/uL (150-450); RED BLOOD COUNT 5.91 10^6/uL (4.00-5.40); WHITE BLOOD COUNT 8.9 10^3/uL (4.0-10.0)
[2020-08-14] MEDS ORDERED: METF500T13 PO (08:59)
[2020-08-14] MEDS ORDERED: ZOLO100T PO (08:59)
[2020-08-14] MEDS ORDERED: TRIL1TAB PO (08:59)
[2020-08-14] MEDS ORDERED: CHLO25TA PO (08:59)
[2020-08-14] MEDS ORDERED: QUET400T PO (08:59)
[2020-08-14] MEDS ORDERED: LISI10TA22 PO (08:59)
[2020-08-14] MEDS ORDERED: ARIP1TAB6 PO (08:59)
[2020-08-14 09:16] LABS: ALBUMIN 3.5 GM/DL (3.2-5.2); ALT/SGPT 26 U/L (12-78); BLOOD UREA NITROGEN 17 MG/DL (7-18); C REACTIVE PROTEIN QUANTITATIV 2.59 MG/DL (0.00-0.30); CALCIUM LEVEL 8.6 MG/DL (8.5-10.1); CARBON DIOXIDE LEVEL 24 MEQ/L (21-32); CHLORIDE LEVEL 110 MEQ/L (98-107); CK-MB VALUE MASS < 1.0 NG/ML (<3.6); CPK CREATINE PHOSPHOKINASE 251 U/L (26-192); CREATININE FOR GFR 1.05 MG/DL (0.55-1.30); GLOMERULAR FILTRATION RATE > 60.0 (>51); GLUCOSE, FASTING 127 MG/DL (70-100); LDH LACTATE DEHYDROGENASE 256 U/L (84-246); MAGNESIUM LEVEL 1.9 MG/DL (1.8-2.4); NT-PRO BNP 1438 PG/ML (<125); POTASSIUM SERUM 3.8 MEQ/L (3.5-5.1); SODIUM LEVEL 141 MEQ/L (136-145); TOTAL PROTEIN 7.2 GM/DL (6.4-8.2); TROPONIN I 0.02 NG/ML (< 0.10)
[2020-08-14 09:32] LABS: INR 1.05; PROTHROMBIN TIME 13.9 SECONDS (12.5-14.3)
[2020-08-14 09:33] LABS: PARTIAL THROMBOPLASTIN TIME 27.5 SECONDS (24.2-38.5)
[2020-08-14] MEDS ORDERED: FUROSEMIDE 100MG/10ML VIAL (J1940) IV ONE (09:35)
[2020-08-14] MEDS ORDERED: DEXTROSE 50% 50 ML SYRINGE IV PRN (10:25)
[2020-08-14] MEDS ORDERED: GLUCAGON INJ 1MG VIAL SC PRN (10:25)
[2020-08-14] MEDS ORDERED: GLUCOSE 4GM CHEW TABLET PO PRN (10:25)
[2020-08-14] MEDS ORDERED: ACETAMINOPHEN TAB 650MG DOSE (2X325MG) PO PRN (10:25)
--- NOTE | 2020-08-14 10:47 | HPEPDOC ---
General Date of Admission 08/14/20 Date of Service: August 14, 2020 Chief Complaint The patient is a 55-year-old female admitted with a reason for visit of Diff Breathing. Source: Patient Exam Limitations: No limitations History of Present Illness Patient is 55 years old female with past history of hypertension, asthma, hyperlipidemia, type 2 diabetes presented to the hospital with increased shortness of breath. Patient stated that for past week she has been having increased shortness of breath on exertion. Shortness of breath getting progressively worse, patient reported orthopnea and arms swelling. Patient denied fever, chills, nausea, vomiting, diarrhea or dysuria. Patient is active smoker. Patient denied wheezes, sputum production. She reported cough when she lying flat. In the emergency room patient was found to have normal lactic acid, troponin with in normal limit, BNP 1438. EKG did not show any acute ischemic changes. X-ray showed increased interstitial markings. Home Medications Scheduled Aripiprazole (Aripiprazole) 5 Mg Tablet, 5 MG PO DAILY, (Reported) Chlorthalidone (Chlorthalidone) 25 Mg Tablet, 25 MG PO DAILY, (Reported) Lisinopril (Lisinopril) 10 Mg Tablet, 10 MG PO DAILY, (Reported) Oxcarbazepine (Trileptal) 300 Mg Tablet, 300 MG PO BID, (Reported) Quetiapine Fumarate (Quetiapine Fumarate) 400 Mg Tablet, 200 MG PO QHS, (Reported) Sertraline Hcl (Zoloft) 100 Mg Tablet, 150 MG PO DAILY, (Reported) Scheduled PRN Metformin HCl (Metformin HCl) 500 Mg Tablet, 500 MG PO BID PRN for HYPERGLYCEMIA, (Reported) Allergies Coded Allergies: Penicillins (Verified Allergy, Unknown, ITCHING , 10/29/18) Past Medical History Medical History SHORTNESS OF BREATH - FOLLOWED BY [facility], PFT ON 09/22/13 REVEALED DIMINISHED TOTAL LUNG CAPACITY, NO IMPROVEMENT WITH BRONCHODILATOR. TREATED WITH INHALED STEROID/LONG-ACTING BRONCHODILATOR POSITIVE METACHOLINE CHALLENGE - 12/28 - 36% REDUCTION IN FEV1. CONSISTENT WITH ASTHMA. ASTHMA - FOLLOWED BY [facility]ATED IN PAST, BUT NO-SHOWED 5 TIMES SO DISCHARGED FROM PRACTICE 2017 (SEE LETTER) HYPERLIPIDEMIA HYPERTENSION DIABETES MELLITUS TYPE II CHRONIC LOW BACK PAIN ANEMIA PTSD, ANXIETY AND DEPRESSION - FOLLOWED BY [facility] SMALL HIATAL HERNIA FOUND ON CXR 09/22/13. RECURRENT BOILS/ABSCESSES COCAINE ABUSE 2014 - H/O ABNORMAL MAMMOGRAM/US REQUIRING BIOPSY WHICH SHOWED FIBROTIC DISEASE STRESS INCONTINENCE NUCLEAR STRESS TEST 05/08/14 - () - NORMAL STUDY ECHOCARDIOGRAM 09/27 - NORMAL CARDIOMEGALY, CHF PER CXR 12/2017 - REFERRED TO CARDIOLOGY (PATIENT DID NOT KEEP APPT DUE TO TRANSPORTATION ISSUES) PRESUMED IRVING - HAS NOT HAD FORMAL NPSG - NO-SHOWED MULTIPLE TIMES TO PULMONARY Surgical History RSO 10/2010 PARTIAL HYSTERECTOMY FOR FIBROID UTERUS - RIGHT SO 01/2011 C SECTION 1981,1985 HAND SURGERY LEFT HAND 1998 STOMACH BX. H-PYLORI + 2010 COLONOSCOPY/ ENDOSCOPY 2014 COLONOSCOPY - NORMAL (DR. JOSEPH) 04/2017 PLANTAR FASCITIS 05/08/18 Family History FATHER: 74 YRS, UNKNOWN MOTHER: 56 YRS, KILLED IN DRIVE BY SHOOTING SIBLINGS: BROTHER AT 48 - PR, ASTHMA AND COLON CANCER. SISTER - 48 - HEALTHY 1 BROTHER(S) , 1 SISTER(S) . 3 SON(S) , 2 DAUGHTER(S) - HEALTHY. DENIES FAMILYHISTORY OF UROLOGICAL DISEASES. DENIES FAMILY HX OF MELANOMA OR PANCREATIC CANCER. Social History * Smoker: current smoker Alcohol: Denies Drugs: cocaine, marijuana A-FIB/CHADSVASC A-FIB History Current/History of A-Fib/PAF?: No Current PO Anticoag Therapy: No Review of Systems Constitutional: Denies: Chills, Fever Eyes: Denies: Pain ENT: Denies: Head Aches, Ear Pain Skin: Denies: Rash Pulmonary: Reports: Dyspnea Cardiovascular: Denies: Chest Pain, Palpitations Gastrointestinal: Denies: Nausea, Vomiting Genitourinary: Denies: Dysuria Hematologic: Denies: Bruising, Bleeding Excessively Endocrine: Denies: Polydipsia Musculoskeletal: Denies: Neck Pain Neurological: Denies: Weakness Psych: Reports: Mood Normal Physical Examination General Exam: Positive: Alert, Cooperative Eye Exam: Positive: PERRLA ENT Exam: Positive: Atraumatic Neck Exam: Positive: Supple, JVD Chest Exam: Positive: Diminished Heart Exam: Positive: Rate Normal Telemetry: Positive: No significant arrhythmia Abdomen Exam: Positive: Normal bowel sounds Extremity Exam: Negative: Clubbing Skin Exam: Positive: Nl turgor and temperature Neuro Exam: Positive: Strength at 5/5 X4 ext Psych Exam: Positive: Mental status NL Vital Signs Vital Signs Date Time Temp Pulse Resp B/P (MAP) Pulse Ox O2 Delivery O2 Flow Rate FiO2 08/14/20 09:45 152/89 (110) 08/14/20 09:38 109 94 08/14/20 08:41 Nasal Cannula 2.0 08/14/20 08:08 96.8 22 Laboratory Data Labs 24H Laboratory Tests 2 08/14/20 08:27: Immature Granulocyte % (Auto) 0.2, Neutrophils (%) (Auto) 61.0, Lymphocytes (%) (Auto) 32.0, Monocytes (%) (Auto) 5.4, Eosinophils (%) (Auto) 0.9, Basophils (%) (Auto) 0.5, Neutrophils # (Auto) 5.4, Lymphocytes # (Auto) 2.8, Monocytes # (Auto) 0.5, Eosinophils # (Auto) 0.1, Basophils # (Auto) 0.0, Nucleated Red Blood Cells % (auto) 0.0, Prothrombin Time 13.9, Prothromb Time International Ratio 1.05, Activated Partial Thromboplast Time 27.5, Anion Gap 7L, Glomerular Filtration Rate > 60.0, Calcium Level 8.6, Magnesium Level 1.9, Total Bilirubin 1.0, Aspartate Amino Transf (AST/SGOT) 18, Alanine Aminotransferase (ALT/SGPT) 26, Alkaline Phosphatase 109, Lactate Dehydrogenase 256H, Total Creatine Kinase 251H, Creatine Kinase MB < 1.0, Creatine Kinase MB Relative Index 0.40, Troponin I 0.02, C-Reactive Protein, Quantitative 2.59H, AN-Vwy-A-Type Natriuretic Peptide 1438H, Total Protein 7.2, Albumin 3.5, Albumin/Globulin Ratio 0.9L 08/14/20 08:28: Lactic Acid Level 1.2 08/14/20 08:49: POC pH (Misc Panel) 7.396, POC Base Excess (Misc Panel) -3.0L, POC Saturated Percent O2 (Misc) 88L, POC pO2 (Misc Panel) 55.0L, POC pCO2 (Misc Panel) 35.6, POC HCO3 (Misc Panel) 21.8L, POC Total CO2 (Misc Panel) 23.0 CBC/BMP Laboratory Tests 08/14/20 08:27 Microbiology Microbiology 08/14/20 Blood Culture, Received Pending 08/14/20 Respiratory Virus Panel (PCR) ([facility]I) - Final, Complete 08/14/20 Blood Culture, Received Pending Assessment/Plan Patient is 55 years old female with past history of hypertension, asthma, hyperlipidemia, type 2 diabetes presented to the hospital with increased shortness of breath. Patient stated that for past week she has been having increased shortness of breath on exertion. Shortness of breath getting progr essively worse, patient reported orthopnea and arms swelling. Patient denied fever, chills, nausea, vomiting, diarrhea or dysuria. Patient is active smoker. Patient denied wheezes, sputum production. She reported cough when she lying flat. In the emergency room patient was found to have normal lactic acid, troponin with in normal limit, BNP 1438. EKG did not show any acute ischemic changes. X-ray showed increased interstitial markings. Problems (1) CHF (congestive heart failure) Status: Acute Problem Text: Patient has positive JVD, orthopnea, elevated BNP Echo I's and O's Salt restriction Lasix IV every 8 hours (2) Type 2 diabetes mellitus Status: Chronic Problem Text: Insulin sliding scale Diabetes diet (3) Hypertension Status: Chronic Problem Text: Continue home cardioprotective medications I increased the dose of lisinopril to 20 mg for better control (4) Hyperlipidemia Status: Chronic Problem Text: I started atorvastatin (5) Depression Problem Text: Continue home medications (6) Asthma Status: Chronic Problem Text: Not in acute exacerbation Continue inhalers Plan / VTE VTE Prophylaxis Ordered?: Yes FINA KHAN DO August 14, 2020 10:47
[2020-08-14] MEDS: ALBUTEROL SULFATE 2.5 MG/0.5 ML INH NEB SOLN INH SCH ×5 (11:50→23:48)
[2020-08-14] MEDS: HumaLOG INSULIN (NovoLOG) PER UNIT SC SCH ×3 (12:00→20:19)
--- NOTE | 2020-08-14 13:22 | ECGEPIP ---
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
[2020-08-14 15:02] VITALS: BP 147/84
[2020-08-14] MEDS: DOCUSATE SODIUM 100MG CAPSULE PO SCH ×2 (15:26→20:10)
[2020-08-14] MEDS: FUROSEMIDE 40MG/4ML VIAL (J1940) IV SCH (15:51)
[2020-08-14] MEDS: SERTRALINE HCL 50 MG TAB PO SCH (15:52)
[2020-08-14] MEDS: ENOXAPARIN 40MG/0.4ML SYRINGE (J1650 PER 10MG) SC SCH (15:52)
[2020-08-14] MEDS: CHLORTHALIDONE 25 MG TAB PO SCH (18:00)
[2020-08-14] MEDS: OXcarbazepine 300 MG TAB PO SCH ×2 (18:02→20:10)
[2020-08-14] MEDS: QUEtiapine FUMARATE 200 MG TAB PO SCH (20:10)
[2020-08-14] MEDS: ATORVASTATIN 20 MG TAB PO SCH (20:10)
[2020-08-14] MEDS: SYMBICORT 160/4.5MCG INHALER 6GM INH SCH (20:35)
[2020-08-14 21:00] VITALS: BP 142/77
[2020-08-14] MEDS ORDERED: ASPIRIN 325 MG TAB PO ONE (21:50)
[2020-08-14 21:56] LABS: CPK CREATINE PHOSPHOKINASE 259 U/L (26-192); MB/CK RELATIVE INDEX 0.39 (< OR =4); TROPONIN I < 0.02 NG/ML (< 0.10)
--- NOTE | 2020-08-14 22:08 | IPNPDOC ---
Text Note Date of Service The patient was seen on 08/14/20. NOTE Alerted by nursing staff at approx 2030 that patient was complaining of contin ued 9/10 left side chest pain and tightness. I evaluated the patient at this time who was complaining of chest pain, tightness and continued sob consistent with her admitting dx. Patient found to be tachy on exam and mildly hypoxic. Will order cta chest. Stat ekg ordered at this time showed impressive t wave depression in leads v3-5, significantly worse than EKG taken in the ed this morning at 0800. Repeat cardiac panel negative. Aspirin given. Pt already on o2 via nasal canula. Will repeat troponins and ekg and 0400 and await results of cta chest. VS,Fishbone, I+O VS, Fishbone, I+O Laboratory Tests 08/14/20 08:27 Vital Signs Date Time Temp Pulse Resp B/P (MAP) Pulse Ox O2 Delivery O2 Flow Rate FiO2 08/14/20 15:02 98.2 103 18 147/84 (105) 96 Room Air 08/14/20 08:41 2.0 RICK ACUNA August 14, 2020 22:07
[2020-08-14] MEDS ORDERED: ISOVUE-370 76% 100ML VIAL As Ordered ONE (22:14)
--- NOTE | 2020-08-14 22:46 | REPVR ---
PROCEDURE INFORMATION: Exam: CTA Chest With Contrast Exam date and time: 08/14/2020 10:18 PM Age: 55 years old Clinical indication: Chest pain; Additional info: Chest pain, hypoxia, tachycardia TECHNIQUE: Imaging protocol: Computed tomographic angiography of the chest with contrast. 3D rendering (Not supervised by radiologist): MIP and/or 3D reconstructed images were created by the technologist. Radiation optimization: All CT scans at this facility use at least one of these dose optimization techniques: automated exposure control; mA and/or kV adjustment per patient size (includes targeted exams where dose is matched to clinical indication); or iterative reconstruction. Contrast material: ISOVUE 370; Contrast volume: 75 ml; Contrast route: INTRAVENOUS (IV); COMPARISON: CR PORTABLE CHEST X-RAY 08/14/2020 8:22 AM FINDINGS: Pulmonary arteries: The main pulmonary artery measures 24 mm. No pulmonary embolism is identified. Aorta: The ascending thoracic aorta measures 23 mm. Lungs: Coarse interstitium and mild scattered fibro-atelectatic change and pulmonary infiltrates. Pleural spaces: Unremarkable. No pneumothorax. No pleural effusion. Heart: Trace pericardial fluid. Lymph nodes: Upper normal right hilar and anterior mediastinal nodes. Bones/joints: Unremarkable. No acute fracture. Soft tissues: Unremarkable. IMPRESSION: 1. Coarse interstitium with mild scattered fibro-atelectatic change, greatest in the left lower lobe and scattered bilateral pulmonary infiltrates. 2. Borderline upper normal right hilar and mediastinal nodes which may be reactive. 3. Trace pericardial fluid. 4. Otherwise negative CTA chest. No pulmonary embolism is identified. Electronically signed by: Mario Allan On 08/14/2020 22:46:39 PM
[2020-08-15] MEDS: FUROSEMIDE 40MG/4ML VIAL (J1940) IV SCH ×3 (00:08→16:00)
[2020-08-15] MEDS: ALBUTEROL SULFATE 2.5 MG/0.5 ML INH NEB SOLN INH SCH ×5 (03:07→19:20)
[2020-08-15 04:40] LABS: HEMATOCRIT 44.9 % (36.0-47.0); HEMOGLOBIN 14.5 g/dl (12.0-15.5); MEAN CORPUSCULAR HGB CONC 32.3 g/dl (32.0-36.5); MEAN CORPUSCULAR VOLUME 77.4 fl (80.0-96.0); PLATELET COUNT, AUTOMATED 246 10^3/uL (150-450); WHITE BLOOD COUNT 8.8 10^3/uL (4.0-10.0)
[2020-08-15 05:17] LABS: ALBUMIN 3.6 GM/DL (3.2-5.2); ALT/SGPT 24 U/L (12-78); BILIRUBIN,TOTAL 0.4 MG/DL (0.2-1.0); BLOOD UREA NITROGEN 22 MG/DL (7-18); CALCIUM LEVEL 9.4 MG/DL (8.5-10.1); CARBON DIOXIDE LEVEL 28 MEQ/L (21-32); CHLORIDE LEVEL 104 MEQ/L (98-107); CK-MB VALUE MASS < 1.0 NG/ML (<3.6); CPK CREATINE PHOSPHOKINASE 220 U/L (26-192); CREATININE FOR GFR 1.38 MG/DL (0.55-1.30); GLOMERULAR FILTRATION RATE 51.6 (>51); GLUCOSE, FASTING 165 MG/DL (70-100); MB/CK RELATIVE INDEX 0.45 (< OR =4); POTASSIUM SERUM 3.7 MEQ/L (3.5-5.1); SODIUM LEVEL 139 MEQ/L (136-145); TOTAL PROTEIN 7.7 GM/DL (6.4-8.2); TROPONIN I < 0.02 NG/ML (< 0.10)
[2020-08-15 06:00] VITALS: BP 108/55
[2020-08-15] MEDS: SYMBICORT 160/4.5MCG INHALER 6GM INH SCH ×2 (07:09→19:20)
[2020-08-15] MEDS: HumaLOG INSULIN (NovoLOG) PER UNIT SC SCH ×4 (08:22→20:16)
[2020-08-15] MEDS: ENOXAPARIN 40MG/0.4ML SYRINGE (J1650 PER 10MG) SC SCH (08:22)
[2020-08-15] MEDS: DOCUSATE SODIUM 100MG CAPSULE PO SCH ×2 (08:23→20:42)
[2020-08-15] MEDS: SERTRALINE HCL 50 MG TAB PO SCH (08:23)
[2020-08-15] MEDS: CHLORTHALIDONE 25 MG TAB PO SCH (08:23)
[2020-08-15] MEDS: OXcarbazepine 300 MG TAB PO SCH ×2 (08:23→20:42)
--- NOTE | 2020-08-15 11:44 | IPNPDOC ---
Text Note Date of Service The patient was seen on 08/15/20. NOTE Subjective: During the night patient complains of substernal chest pain, reso lved in a few hours. Patient stated that her breathing improved. Objective: GENERAL APPEARANCE: NAD HEENT: no scleral icterus, no JVD, EOMI CARDIOVASCULAR: S1S2 LUNGS: CTA ABDOMEN: soft & not tender w palpitation MUSCULOSKELETAL: no cyanosis, no swelling INTEGUMENT: no generalized pallor NEUROLOGICAL: cranial nerve function from 2-12 intact intact, follows commands, speech not dysarthric Assessment/Plan Patient is 55 years old female with past history of hypertension, asthma, hy perlipidemia, type 2 diabetes presented to the hospital with increased shortness of breath. Patient stated that for past week she has been having increased shortness of breath on exertion. Shortness of breath getting progressively worse, patient reported orthopnea and arms swelling. Patient denied fever, chills, nausea, vomiting, diarrhea or dysuria. Patient is active smoker. Patient denied wheezes, sputum production. She reported cough when she lying flat. In the emergency room patient was found to have normal lactic acid, troponin with in normal limit, BNP 1438. EKG did not show any acute ischemic changes. X-ray showed increased interstitial markings. Problems (1) CHF (congestive heart failure) Patient has positive JVD, orthopnea, elevated BNP Echo pending I's and O's Salt restriction Lasix IV every 8 hours Patient developed good urine output (2) Type 2 diabetes mellitus Insulin sliding scale Diabetes diet (3) Hypertension Continue home cardioprotective medications (4) Hyperlipidemia continue atorvastatin (5) Depression Continue home medications (6) Asthma Not in acute exacerbation Continue inhalers VS,Fishbone, I+O VS, Fishbone, I+O Laboratory Tests 08/15/20 04:31 Vital Signs Date Time Temp Pulse Resp B/P (MAP) Pulse Ox O2 Delivery O2 Flow Rate FiO2 08/15/20 09:00 2.0 08/15/20 08:54 104/70 08/15/20 06:00 97.1 98 18 93 Nasal Cannula I&O- Last 24 Hours up to 6 AM 08/15/20 06:00 Intake Total 390 ml Output Total 2550 ml Balance -2160 ml FINA KHAN DO August 15, 2020 11:44
--- NOTE | 2020-08-15 13:27 | ECGEPIP ---
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
--- NOTE | 2020-08-15 13:30 | ECGEPIP ---
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
[2020-08-15 14:00] VITALS: BP 107/65
[2020-08-15] MEDS: QUEtiapine FUMARATE 200 MG TAB PO SCH (20:42)
[2020-08-15] MEDS: ATORVASTATIN 20 MG TAB PO SCH (20:43)
[2020-08-15 22:00] VITALS: BP 128/73
[2020-08-16] VITALS (9 sets, daily range): BP systolic 88–107; BP diastolic 51–66
[2020-08-16] MEDS: ALBUTEROL SULFATE 2.5 MG/0.5 ML INH NEB SOLN INH SCH ×4 (00:44→11:04)
[2020-08-16] MEDS: FUROSEMIDE 40MG/4ML VIAL (J1940) IV SCH ×3 (00:59→16:00)
[2020-08-16 06:14] LABS: HEMATOCRIT 48.2 % (36.0-47.0); HEMOGLOBIN 15.5 g/dl (12.0-15.5); MEAN CORPUSCULAR HEMOGLOBIN 25.1 pg (27.0-33.0); MEAN CORPUSCULAR HGB CONC 32.2 g/dl (32.0-36.5); PLATELET COUNT, AUTOMATED 247 10^3/uL (150-450); RED BLOOD COUNT 6.18 10^6/uL (4.00-5.40); WHITE BLOOD COUNT 9.5 10^3/uL (4.0-10.0)
[2020-08-16 06:29] LABS: ALBUMIN 3.9 GM/DL (3.2-5.2); BILIRUBIN,TOTAL 0.5 MG/DL (0.2-1.0); CALCIUM LEVEL 10.1 MG/DL (8.5-10.1); CREATININE FOR GFR 1.44 MG/DL (0.55-1.30); GLOMERULAR FILTRATION RATE 49.1 (>51); MAGNESIUM LEVEL 2.1 MG/DL (1.8-2.4); POTASSIUM SERUM 3.6 MEQ/L (3.5-5.1)
[2020-08-16 06:43] LABS: LYMPHOCYTES 55 % (16-44); MONOCYTES 3 % (0-5); NEUTROPHILS 42 % (28-66)
[2020-08-16 06:44] LABS: PLATELET ESTIMATE NORMAL (NORMAL)
[2020-08-16] MEDS: SYMBICORT 160/4.5MCG INHALER 6GM INH SCH ×2 (07:21→20:24)
[2020-08-16] MEDS: HumaLOG INSULIN (NovoLOG) PER UNIT SC SCH ×4 (07:30→21:00)
[2020-08-16] MEDS: DOCUSATE SODIUM 100MG CAPSULE PO SCH ×2 (10:40→21:37)
[2020-08-16] MEDS: CHLORTHALIDONE 25 MG TAB PO SCH (10:40)
[2020-08-16] MEDS: SERTRALINE HCL 50 MG TAB PO SCH (10:42)
[2020-08-16] MEDS: OXcarbazepine 300 MG TAB PO SCH ×2 (10:42→21:37)
[2020-08-16] MEDS: ENOXAPARIN 40MG/0.4ML SYRINGE (J1650 PER 10MG) SC SCH (10:43)
--- NOTE | 2020-08-16 13:57 | IPNPDOC ---
Text Note Date of Service The patient was seen on 08/16/20. NOTE Subjective: No any acute events overnight. Patient denied fever, chills, vomit ing. Urine output 380 mL overnight Objective: GENERAL APPEARANCE: NAD HEENT: no scleral icterus, no JVD, EOMI CARDIOVASCULAR: S1S2 LUNGS: CTA ABDOMEN: soft & not tender w palpitation MUSCULOSKELETAL: no cyanosis, no swelling INTEGUMENT: no generalized pallor NEUROLOGICAL: cranial nerve function from 2-12 intact intact, follows commands, speech not dysarthric Assessment/Plan Patient is 55 years old female with past history of hypertension, asthma, hyperlipidemia, type 2 diabetes presented to the hospital with increased shortness of breath. Patient stated that for past week she has been having increased shortness of breath on exertion. Shortness of breath getting progressively worse, patient reported orthopnea and arms swelling. Patient denied fever, chills, nausea, vomiting, diarrhea or dysuria. Patient is active smoker. Patient denied wheezes, sputum production. She reported cough when she lying flat. In the emergency room patient was found to have normal lactic acid, troponin with in normal limit, BNP 1438. EKG did not show any acute ischemic changes. X-ray showed increased interstitial markings. Problems (1) CHF (congestive heart failure) Patient has positive JVD, orthopnea, elevated BNP Echo pending I's and O's Salt Lasix IV every 8 hours Patient developed good urine output for past 24 hours Fluid restriction (2) Type 2 diabetes mellitus Insulin sliding scale Diabetes diet (3) Hypertension Continue home cardioprotective medications (4) Hyperlipidemia continue atorvastatin (5) Depression Continue home medications (6) Asthma Not in acute exacerbation Continue inhalers VS,Fishbone, I+O VS, Fishbone, I+O Laboratory Tests 08/16/20 05:49 Vital Signs Date Time Temp Pulse Resp B/P (MAP) Pulse Ox O2 Delivery O2 Flow Rate FiO2 08/16/20 11:00 92 Nasal Cannula 1.0 08/16/20 10:41 115/68 08/16/20 06:59 97.9 94 20 I&O- Last 24 Hours up to 6 AM 08/16/20 06:00 Intake Total 870 ml Output Total 1350 ml Balance -480 ml FINA KHAN DO August 16, 2020 13:57
[2020-08-16] MEDS ORDERED: ALBUTEROL SULFATE 2.5 MG/0.5 ML INH NEB SOLN INH PRN (14:50)
[2020-08-16] MEDS: IPRATROPIUM 0.5MG/ALBUTEROL 2.5MG INH SOL UD 3ML (DUONEB) NEB SCH ×2 (15:06→20:00)
[2020-08-16] MEDS ORDERED: NS 500 ML IV ONE ×2 (18:55→21:50)
[2020-08-16] MEDS: ONDANSETRON 4MG/2ML VIAL IV PRN (19:08)
[2020-08-16] MEDS: QUEtiapine FUMARATE 200 MG TAB PO SCH (21:37)
[2020-08-16] MEDS: ATORVASTATIN 20 MG TAB PO SCH (21:37)
[2020-08-17] MEDS: IPRATROPIUM 0.5MG/ALBUTEROL 2.5MG INH SOL UD 3ML (DUONEB) NEB SCH ×4 (02:51→20:20)
[2020-08-17 06:00] VITALS: BP_SYST 121; BP_SYST 90; BP_DIAS 54; BP_DIAS 73
[2020-08-17 06:09] LABS: BASO % 0.2 % (0.0-1.0); EOS # 0.1 10^3/uL (0.0-0.5); EOS % 0.8 % (0.0-3.0); HEMATOCRIT 46.5 % (36.0-47.0); HEMOGLOBIN 14.4 g/dl (12.0-15.5); LYMPH # 3.9 10^3/uL (1.5-5.0); LYMPH % 41.3 % (24.0-44.0); MEAN CORPUSCULAR VOLUME 80.6 fl (80.0-96.0); MONO # 0.7 10^3/uL (0.0-0.8); MONO % 7.6 % (2.0-8.0); NEUTROPHILS # 4.7 10^3/uL (1.5-8.5); NEUTROPHILS % 49.8 % (36.0-66.0); PLATELET COUNT, AUTOMATED 236 10^3/uL (150-450); RED BLOOD COUNT 5.77 10^6/uL (4.00-5.40); WHITE BLOOD COUNT 9.5 10^3/uL (4.0-10.0)
[2020-08-17 06:43] LABS: ALBUMIN 3.4 GM/DL (3.2-5.2); BILIRUBIN,TOTAL 0.5 MG/DL (0.2-1.0); CREATININE FOR GFR 2.95 MG/DL (0.55-1.30); GLOMERULAR FILTRATION RATE 21.5 (>51); MAGNESIUM LEVEL 2.3 MG/DL (1.8-2.4); POTASSIUM SERUM 3.8 MEQ/L (3.5-5.1); TOTAL PROTEIN 7.3 GM/DL (6.4-8.2)
[2020-08-17] MEDS: SYMBICORT 160/4.5MCG INHALER 6GM INH SCH ×2 (07:14→20:20)
[2020-08-17] MEDS ORDERED: NS 1,000 ML IV ONE (07:45)
[2020-08-17] MEDS: HumaLOG INSULIN (NovoLOG) PER UNIT SC SCH ×4 (08:06→21:00)
[2020-08-17] MEDS: DOCUSATE SODIUM 100MG CAPSULE PO SCH ×2 (08:07→21:35)
[2020-08-17] MEDS: SERTRALINE HCL 50 MG TAB PO SCH (08:07)
[2020-08-17] MEDS: OXcarbazepine 300 MG TAB PO SCH ×2 (08:08→21:35)
[2020-08-17] MEDS: ENOXAPARIN 40MG/0.4ML SYRINGE (J1650 PER 10MG) SC SCH (08:08)
[2020-08-17 08:15] VITALS: BP 96/52
[2020-08-17 09:46] VITALS: BP 107/59
--- NOTE | 2020-08-17 10:59 | ECHO ---
DATE OF PROCEDURE: 08/16/2020 Age: 55 Gender: Female Height: 150 cm Weight: 76 kg REFERRING PHYSICIAN: Kameron Jimenez DO INDICATION: Congestive heart failure. MEASUREMENTS: IVS 1.1 cm LV 5.3 cm LVPW 1.1 cm LA 3.5 cm Aorta 2.6 cm IVC 1.1 cm Mitral E wave velocity 84 cm/s Mitral A wave 72 cm/s E prime septal 6.1 cm/s E prime lateral 3.3 cm/s FINDINGS: This study is of difficult technical quality. The patient is in sinus rhythm with wide QRS complex. Left ventricle has normal size. There is a global left ventricular systolic dysfunction with estimated LVEF around 30% to 35%. Right ventricle was relatively poorly visualized, but appears mildly dilated, but normally contractile. Both atria appear gross normal. Aortic, mitral, and tricuspid valves appear normal. Pulmonic valve was not well seen. Trivial pericardial effusion is noted. Inferior vena cava is of relatively small caliber and appropriately collapses with inspiration, indicative of normal or possibly even low central venous pressure. Aortic root is normal. Aortic arch was not well seen. Abdominal aorta appears normal. Doppler interrogation of the aortic valve reveals no stenosis or insufficiency. There is trace mitral insufficiency. Tricuspid valve is functionally competent. Mitral inflow pattern and tissue Doppler imaging of the mitral annulus revealed grade 2 diastolic dysfunction (mitral E wave velocity 84, A wave 72, E prime septal 6.1, E prime lateral 3.3). CONCLUSIONS: 1. Study is of fair technical quality. The patient is in sinus rhythm with wide QRS complex. 2. Normal LV size with severe global hypokinesis and overall estimated LVEF around 30% to 35%. Grade 2 diastolic dysfunction. 3. No significant valvular disease 4. Normal central venous pressure. 5. Unable to estimate pulmonary artery pressure. 6. Trivial pericardial effusion. COMMENTS: Study favors nonischemic over ischemic etiology of the patients cardiomyopathy. MTDD
[2020-08-17 11:23] VITALS: BP 98/55
--- NOTE | 2020-08-17 11:57 | IPNPDOC ---
Text Note Date of Service The patient was seen on 08/17/20. NOTE Subjective: No any acute events overnight. Patient developed hypotension in the morning 90/54. Patient denied any chest pain or palpitations. For past 24 hours urine output on 3 L Objective: GENERAL APPEARANCE: NAD HEENT: no scleral icterus, no JVD, EOMI CARDIOVASCULAR: S1S2 LUNGS: CTA ABDOMEN: soft & not tender w palpitation MUSCULOSKELETAL: no cyanosis, no swelling INTEGUMENT: no generalized pallor NEUROLOGICAL: cranial nerve function from 2-12 intact intact, follows commands, speech not dysarthric Assessment/Plan Patient is 55 years old female with past history of hypertension, asthma, hyperlipidemia, type 2 diabetes presented to the hospital with increased shortn ess of breath. Patient stated that for past week she has been having increased shortness of breath on exertion. Shortness of breath getting progressively worse, patient reported orthopnea and arms swelling. Patient denied fever, chills, nausea, vomiting, diarrhea or dysuria. Patient is active smoker. Patient denied wheezes, sputum production. She reported cough when she lying flat. In the emergency room patient was found to have normal lactic acid, troponin with in normal limit, BNP 1438. EKG did not show any acute ischemic changes. X-ray showed increased interstitial markings. Problems (1) combined systolic and diastolic CHF (congestive heart failure) Most likely secondary to cocaine abuse and poorly controlled hypertension Patient has positive JVD, orthopnea, elevated BNP Echo showed Normal LV size with severe global hypokinesis and overall estimated LVEF around 30% to 35%. Grade 2 diastolic dysfunction I's and O's Lasix on hold due to worsening kidney function Fluid restriction Appreciate/agree with reel tender consult (2) Type 2 diabetes mellitus Insulin sliding scale Diabetes diet (3) Hypertension Continue home cardioprotective medications (4) Hyperlipidemia continue atorvastatin (5) Depression Continue home medications (6) Asthma Not in acute exacerbation Continue inhalers AMINATA Combined due to intensive diuresis, previous contrast study on admission I will give bolus of fluid, we will check BMP, Lasix on hold Continue to monitor Chlorthalidone on hold Hypotension Most likely medication side effect I will hold lisinopril, chlorthalidone and Lasix VS,Fishbone, I+O VS, Fishbone, I+O Laboratory Tests 08/17/20 05:46 Vital Signs Date Time Temp Pulse Resp B/P (MAP) Pulse Ox O2 Delivery O2 Flow Rate FiO2 08/17/20 11:23 90 98/55 (69) 95 Nasal Cannula 2.0 08/17/20 06:00 97.9 17 I&O- Last 24 Hours up to 6 AM 08/17/20 06:00 Intake Total 1590 ml Output Total 2150 ml Balance -560 ml FINA KHAN DO August 17, 2020 11:57
[2020-08-17 13:51] LABS: CREATININE FOR GFR 1.87 MG/DL (0.55-1.30); GLOMERULAR FILTRATION RATE 36.3 (>51); POTASSIUM SERUM 4.3 MEQ/L (3.5-5.1)
[2020-08-17 14:00] VITALS: BP 111/64
[2020-08-17] MEDS: MIRALAX *UNIT DOSE* 17GM PACKET PO PRN (18:06)
[2020-08-17] MEDS: ATORVASTATIN 20 MG TAB PO SCH (21:34)
[2020-08-17] MEDS: QUEtiapine FUMARATE 200 MG TAB PO SCH (21:35)
[2020-08-17 22:00] VITALS: BP 110/74
--- NOTE | 2020-08-17 22:23 | CR ---
CARDIOLOGY CONSULTATION DATE: 08/17/2020 REQUESTING PHYSICIAN: Dr. Jimenez REASON FOR CONSULTATION: Congestive heart failure HISTORY OF PRESENT ILLNESS: I was asked by Dr. Jimenez to see Mrs. Dorantes. She is a 55-year-old -[place] female that is known to me from 2014 when I did a nuclear stress test on her for symptoms of shortness of breath that was normal. She carries a longstanding history of hypertension, asthma, dyslipidemia, and type 2 diabetes. She tells me that she was in her usual state of health until approximately 2 days prior to admission when she developed a fairly sudden onset of dyspnea that rapidly progressed to orthopnea and severe PND and eventually she decided to come to the hospital. She denies ever having any chest discomfort per se. The evaluation in the hospital included an EKG that revealed diffuse precordial T-wave inversions. She had CT angiography which was negative for pulmonary embolism. And her BNP was very elevated. Echocardiogram revealed evidence for global left ventricular systolic dysfunction with estimated EF around 30%. No significant valvular disease but somewhat surprisingly, normal central venous pressure. She was initially very aggressively diuresed, but then her renal function rapidly deteriorated and consequently Lisinopril and diuretics had to be held. Today at the time of my interview, she tells me she feels much improved. She does admit that she used cocaine relatively recently which she believed contributed to her presentation. HOME MEDICATIONS: 1. Aripiprazole 5 mg daily. 2. Chlorthalidone 25 mg daily. 3. Lisinopril 10 mg daily. 4. Trileptal 300 mg twice daily. 5. Quetiapine 200 mg at night. 6. Zoloft 100 mg daily. 7. She also uses Metformin but not consistently. ALLERGIES: Penicillin. PAST MEDICAL HISTORY: The patient's past medical history is significant for: 1. Asthma. 2. Dyslipidemia. 3. Hypertension. 4. Type 2 diabetes. 5. Anemia. 6. PTSD. 7. Anxiety. 8. Depression. 9. Remote history of cocaine use with recent relapse. 10. History of nuclear stress test in April 2014 that was normal. PAST SURGICAL HISTORY: The patient's past surgical history is significant for: 1. Partial hysterectomy. 2. . 3. Hand surgery. 4. Stomach biopsy. 5. Plantar fasciitis surgery. FAMILY HISTORY: Both parents are . Father for unknown reasons. Her mother was killed. Her brother of a M.I. in his 40's. Sister is in her 40's and healthy. SOCIAL HISTORY: The patient is . She is a current smoker. She occasionally uses drugs. 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 REVIEW OF SYSTEMS: She denies any recent fever, chills, nausea, vomiting or diarrhea. There is no history of syncope or pre-syncope. She denies any chest pain. She does admit to only a few day history of initially dyspnea with exertion that progressed to resting dyspnea, PND and orthopnea. PHYSICAL EXAMINATION: GENERAL APPEARANCE: Mrs. Dorantes is a 55-year-old -[place] female who appears older than her calendar age. She is currently in no distress, alert and oriented and appropriate. VITAL SIGNS: Last set of vital signs - blood pressure 111/64, heart rate in the 80's and 90's. She is afebrile. Saturation 93% on 2 liters of oxygen. Her weight was recorded as 75.5 kg which is about half a kg down since admission. NECK: Her JVP is not high. I do not appreciate a carotid bruit. LUNGS: Clear. Good air movement. HEART: Regular rhythm without obvious gallop, rub or murmur. ABDOMEN: Soft without rebound tenderness. EXTREMITIES: I do not appreciate any peripheral edema. Peripheral pulses are good quality. LABORATORY DATA: As of noon today, sodium 141, potassium 4.3, BUN 36, creatinine 1.9 which is actually down from 2.9 this morning for a GFR of 36 and glucose 88. She had normal liver function tests. Normal cardiac enzymes and NT-pro BNP was 1,400 on admission and only 143 earlier today. CBC is normal. IMAGING DATA: Her imaging is per history of present illness. Chest x-ray was consistent with congestive heart failure. CT angiography did not reveal evidence for a pulmonary embolism. There were nonspecific abnormalities in my opinion, most consistent with congestive heart failure. Several EKGs on her chart reveal diffuse precordial T-wave inversions. An echocardiogram revealed severe left ventricular systolic dysfunction that was global in nature and overall estimated ejection fraction of 30% with grade 2 diastolic dysfunction and no significant valvular disease. ASSESSMENT AND PLAN: Mrs. Dorantes is a 55-year-old female who presented to the hospital with a fairly sudden onset of congestive heart failure. Unfortunately I believe it is probable that it was related to cocaine use. Unfortunately it appears that on the very aggressive diuresis plus administration of IV contrast in the Emergency Room brought on acute renal failure as an initial complication. At this point I think it is appropriate to wait at least another day before we re-start her on some form of vasodilators. Her blood pressure at times has been soft so it will be problematic. I do not believe that she should be receiving any additional diuretics at this moment. Eventually we should gradually restart her typical medications that should include erwin inhibitors or ARBs; she probably will benefit from Spironolactone and possibly SGLT-2 inhibitors especially Farxiga. I am not optimistic about giving her Entresto due to soft blood pressure. Most importantly, I had a conversation with her and she believes that she will be able to quit all her drugs as well as nicotine permanently which I sincerely hope so. I explicitly told her that if she starts using cocaine again that she very likely will not survive it very long. I do not believe that we should introduce beta blockers at least for a few more days until she is full compensated. BENEDICT
[2020-08-18] MEDS: IPRATROPIUM 0.5MG/ALBUTEROL 2.5MG INH SOL UD 3ML (DUONEB) NEB SCH ×4 (01:04→21:00)
[2020-08-18 06:00] VITALS: BP 111/67
[2020-08-18 06:40] LABS: BASO % 0.3 % (0.0-1.0); EOS # 0.1 10^3/uL (0.0-0.5); EOS % 1.4 % (0.0-3.0); HEMATOCRIT 45.8 % (36.0-47.0); MEAN CORPUSCULAR HEMOGLOBIN 24.9 pg (27.0-33.0); MEAN CORPUSCULAR HGB CONC 30.6 g/dl (32.0-36.5); MEAN CORPUSCULAR VOLUME 81.3 fl (80.0-96.0); MONO # 0.6 10^3/uL (0.0-0.8); MONO % 6.6 % (2.0-8.0); NEUTROPHILS # 4.5 10^3/uL (1.5-8.5); NEUTROPHILS % 48.3 % (36.0-66.0); PLATELET COUNT, AUTOMATED 234 10^3/uL (150-450); RED BLOOD COUNT 5.63 10^6/uL (4.00-5.40); WHITE BLOOD COUNT 9.3 10^3/uL (4.0-10.0)
[2020-08-18 07:00] LABS: ALBUMIN 3.4 GM/DL (3.2-5.2); ALT/SGPT 32 U/L (12-78); BILIRUBIN,TOTAL 0.7 MG/DL (0.2-1.0); BLOOD UREA NITROGEN 25 MG/DL (7-18); CALCIUM LEVEL 9.3 MG/DL (8.5-10.1); CARBON DIOXIDE LEVEL 30 MEQ/L (21-32); CHLORIDE LEVEL 103 MEQ/L (98-107); CREATININE FOR GFR 0.97 MG/DL (0.55-1.30); GLOMERULAR FILTRATION RATE > 60.0 (>51); GLUCOSE, FASTING 86 MG/DL (70-100); MAGNESIUM LEVEL 2.1 MG/DL (1.8-2.4); POTASSIUM SERUM 4.2 MEQ/L (3.5-5.1); SODIUM LEVEL 138 MEQ/L (136-145); TOTAL PROTEIN 7.1 GM/DL (6.4-8.2)
[2020-08-18] MEDS: ONDANSETRON 4MG/2ML VIAL IV PRN (07:11)
[2020-08-18] MEDS: HumaLOG INSULIN (NovoLOG) PER UNIT SC SCH ×4 (07:30→20:43)
[2020-08-18] MEDS: SYMBICORT 160/4.5MCG INHALER 6GM INH SCH ×2 (08:46→21:00)
[2020-08-18 08:51] VITALS: BP 111/67
[2020-08-18] MEDS: OXcarbazepine 300 MG TAB PO SCH ×2 (08:51→19:52)
[2020-08-18] MEDS: SERTRALINE HCL 50 MG TAB PO SCH (08:51)
[2020-08-18] MEDS: DOCUSATE SODIUM 100MG CAPSULE PO SCH ×2 (08:51→19:52)
[2020-08-18] MEDS: MIRALAX *UNIT DOSE* 17GM PACKET PO PRN (08:52)
[2020-08-18] MEDS: ENOXAPARIN 40MG/0.4ML SYRINGE (J1650 PER 10MG) SC SCH (08:52)
[2020-08-18] MEDS ORDERED: lisinopriL 5 MG TAB PO SCH (09:00)
[2020-08-18] MEDS ORDERED: FUROSEMIDE 40MG/4ML VIAL (J1940) IV SCH (09:00)
--- NOTE | 2020-08-18 09:06 | IPN ---
PROGRESS NOTE DATE: 08/18/2020 Mrs. Dorantes has been feeling well. There were no events overnight. Review of telemetry monitoring reveals no arrhythmias. This morning, she tells me that she is not short of breath but it is with oxygen while lying in bed. VITAL SIGNS: Blood pressure 111/67, heart rate has been mostly in 80s and 90s, sinus rhythm, she is afebrile, saturation 95-96% on 2 liters of oxygen. Her fluid balance yesterday was recorded about 700 positive, weight is unchanged at 75.5 kg. She is alert, oriented, and appropriate. Lungs are clear, good air movement, no wheezing. Heart reveals regular rhythm, I do not appreciate a murmur or gallop. Jugular venous pressure (JVP) is not elevated. She has no peripheral edema. LABORATORIES: Basic metabolic panel to my astonishment is back to normal, creatinine is 0.97. CBC is normal as well. ASSESSMENT AND PLAN: Mrs. Dorantes is a 55-year-old female who came in with acute heart failure. I suspect that it was an effect of cocaine ingestion. Echocardiogram revealed severe left ventricular systolic dysfunction and she had diffuse T-wave inversions in all precordial leads on several day EKGs in a row. On the other hand, troponin was never elevated. She was then, I suspect, over-diuresed, and together with combination of her chronic lisinopril use and administration of IV contrast developed acute renal failure that she has recovered from at this point. I do believe it is time to restart some of her medications and the left ventricular (LV) dysfunction management. I am going to start her on low dose lisinopril. She was already ordered IV furosemide that I discontinued because I believe that patient is currently euvolemic. I think that if everything goes well and her electrolytes remain stable tomorrow, creatinine does not bump, she might be able to go home tomorrow and we can see her in followup on an outpatient basis. I encouraged her to start ambulating and I think we can take her off oxygen to see whether she becomes hypoxemic without it.
--- NOTE | 2020-08-18 10:27 | IPNPDOC ---
Text Note Date of Service The patient was seen on 08/18/20. NOTE Subjective: No any acute events overnight. Blood pressure normalized. Patient denied any chest pain or palpitations Objective: GENERAL APPEARANCE: NAD HEENT: no scleral icterus, no JVD, EOMI CARDIOVASCULAR: S1S2 LUNGS: CTA ABDOMEN: soft & not tender w palpitation MUSCULOSKELETAL: no cyanosis, no swelling INTEGUMENT: no generalized pallor NEUROLOGICAL: cranial nerve function from 2-12 intact intact, follows commands, speech not dysarthric Assessment/Plan Patient is 55 years old female with past history of hypertension, asthma, hyperlipidemia, type 2 diabetes presented to the hospital with increased shortness of breath. Patient stated that for past week she has been having increased shortness of breath on exertion. Shortness of breath getting progressively worse, patient reported orthopnea and arms swelling. Patient denied fever, chills, nausea, vomiting, diarrhea or dysuria. Patient is active smoker. Patient denied wheezes, sputum production. She reported cough when she lying flat. In the emergency room patient was found to have normal lactic acid, troponin with in normal limit, BNP 1438. EKG did not show any acute ischemic changes. X-ray showed increased interstitial markings. Problems (1) combined systolic and diastolic CHF (congestive heart failure) Most likely secondary to cocaine abuse and poorly controlled hypertension Patient had positive JVD, orthopnea, elevated BNP Echo showed Normal LV size with severe global hypokinesis and overall estimated LVEF around 30% to 35%. Grade 2 diastolic dysfunction I's and O's Cardiology team started lisinopril (2) Type 2 diabetes mellitus Insulin sliding scale Diabetes diet (3) Hypertension Continue home cardioprotective medications with parameters (4) Hyperlipidemia continue atorvastatin (5) Depression Continue home medications (6) Asthma Not in acute exacerbation Continue inhalers AMINATA Resolved Hypotension Resolved VS,Fishbone, I+O VS, Fishbone, I+O Laboratory Tests 08/17/20 12:02 08/18/20 06:00 Vital Signs Date Time Temp Pulse Resp B/P (MAP) Pulse Ox O2 Delivery O2 Flow Rate FiO2 08/18/20 08:51 111/67 08/18/20 06:00 97.7 90 17 95 Nasal Cannula 2.0 I&O- Last 24 Hours up to 6 AM 08/18/20 06:00 Intake Total 2290 ml Output Total 1700 ml Balance 590 ml DROZHZHIN,FINA DO August 18, 2020 10:27
[2020-08-18 14:00] VITALS: BP 86/56
[2020-08-18] MEDS ORDERED: NS 500 ML IV ONE (14:20)
[2020-08-18] MEDS: QUEtiapine FUMARATE 200 MG TAB PO SCH (19:52)
[2020-08-18] MEDS: ATORVASTATIN 20 MG TAB PO SCH (19:52)
[2020-08-18 22:00] VITALS: BP 97/63
[2020-08-19] MEDS: IPRATROPIUM 0.5MG/ALBUTEROL 2.5MG INH SOL UD 3ML (DUONEB) NEB SCH ×2 (02:06→08:00)
[2020-08-19 06:00] VITALS: BP 105/66
[2020-08-19 06:31] LABS: BASO # 0.1 10^3/uL (0.0-0.2); BASO % 0.5 % (0.0-1.0); EOS # 0.1 10^3/uL (0.0-0.5); EOS % 1.5 % (0.0-3.0); HEMATOCRIT 46.2 % (36.0-47.0); HEMOGLOBIN 14.1 g/dl (12.0-15.5); LYMPH # 4.4 10^3/uL (1.5-5.0); MEAN CORPUSCULAR HEMOGLOBIN 24.6 pg (27.0-33.0); MEAN CORPUSCULAR HGB CONC 30.5 g/dl (32.0-36.5); MEAN CORPUSCULAR VOLUME 80.5 fl (80.0-96.0); MONO # 0.6 10^3/uL (0.0-0.8); MONO % 5.8 % (2.0-8.0); NEUTROPHILS # 4.4 10^3/uL (1.5-8.5); PLATELET COUNT, AUTOMATED 233 10^3/uL (150-450); RED BLOOD COUNT 5.74 10^6/uL (4.00-5.40); WHITE BLOOD COUNT 9.5 10^3/uL (4.0-10.0)
[2020-08-19 06:51] LABS: BLOOD UREA NITROGEN 21 MG/DL (7-18); CREATININE FOR GFR 0.94 MG/DL (0.55-1.30); GLUCOSE, FASTING 109 MG/DL (70-100)
[2020-08-19 06:52] LABS: ALBUMIN 3.4 GM/DL (3.2-5.2); ALT/SGPT 34 U/L (12-78); BILIRUBIN,TOTAL 0.6 MG/DL (0.2-1.0); CALCIUM LEVEL 9.4 MG/DL (8.5-10.1); CARBON DIOXIDE LEVEL 30 MEQ/L (21-32); CHLORIDE LEVEL 102 MEQ/L (98-107); GLOMERULAR FILTRATION RATE > 60.0 (>51); MAGNESIUM LEVEL 1.9 MG/DL (1.8-2.4); POTASSIUM SERUM 4.1 MEQ/L (3.5-5.1); SODIUM LEVEL 136 MEQ/L (136-145); TOTAL PROTEIN 7.4 GM/DL (6.4-8.2)
[2020-08-19] MEDS: SYMBICORT 160/4.5MCG INHALER 6GM INH SCH (07:47)
[2020-08-19] MEDS: DOCUSATE SODIUM 100MG CAPSULE PO SCH (08:20)
[2020-08-19] MEDS: OXcarbazepine 300 MG TAB PO SCH (08:20)
[2020-08-19] MEDS: SERTRALINE HCL 50 MG TAB PO SCH (08:20)
[2020-08-19] MEDS: ENOXAPARIN 40MG/0.4ML SYRINGE (J1650 PER 10MG) SC SCH (08:22)
[2020-08-19] MEDS: HumaLOG INSULIN (NovoLOG) PER UNIT SC SCH ×2 (08:22→12:08)
[2020-08-19] MEDS ORDERED: LISINOPRIL *2.5 MG* TAB PO SCH (09:00)
[2020-08-19] MEDS ORDERED: LISI2.5T2 PO (10:20)
[2020-08-19] MEDS ORDERED: LASI20TA3 PO (10:20)
[2020-08-19] MEDS ORDERED: SPIR-10 PO (10:20)
--- NOTE | 2020-08-19 10:58 | IPNPDOC ---
Text Note Date of Service The patient was seen on 08/19/20. NOTE Cardiology progress note: Date: 08/19/2020. Subjective: Mrs. Dorantes was seen and examined at bedside today. She reports to be feeling well, denies having any overnight events. Patient is still on oxygen 1 L and saturating in her 90s. She denies having any shortness of breath, chest pain. Review of telemetry did not show any arrhythmias. did have an episode of hypotension with systolic blood pressure in 80s and was given 500 cc of sodium chloride bolus. Objective: Physical exam: Gen. appearance: Patient is alert and oriented 3: Was laying in bed, does not appear to be in any acute distress. HEENT: Normocephalic, atraumatic, moist oral mucosa, no prominent swellings in her neck. No JVP distention noted. Cardiac: Regular rate and rhythm, S1-S2 normal, no murmurs appreciated. Respiratory: Bilateral clear breath sounds on auscultation. No adventitious breath sounds appreciated. Abdomen: Soft, positive bowel sounds, no tenderness on palpation of all 4 quadrants. Extremities: No pedal edema. Labs: [08/19/2020] WBC 9.5, hemoglobin 14.1, hematocrit 46.2, platelet 233. Chemistry: Sodium 136, potassium 4.1, chloride 102, bicarbonate 30, BUN 21, creatinine 0.94, GFR> 60 Assessment and plan: Mrs. Dorantes is a 55-year-old female who came in with acute heart failure. Rivas spected it to be an effect of cocaine ingestion. Echocardiogram revealed severe left ventricular systolic dysfunction and EKG showing diffuse T-wave inversions in all precordial leads, with no elevation of troponin. We suspect she has been over diuresed in combination with chronic lisinopril use and administration of IV contrast which led to acute renal failure and she has recovered from it at this point. After resolving of her acute renal failure she was started on low- dose lisinopril for her LV dysfunction. Patient did have an episode of hypotension with SBP in 80s and her lisinopril was held this morning, and was given 500 mL of sodium chloride bolus. Patient can be sent home today on lisinopril 2.5 MG by mouth, can be started on her home dose of Lasix and spironolactone on discharge. Patient was instructed to avoid cocaine and smoking as it could be detrimental if she does not. Given her oxygen requirement at hospital she might be going home with oxygen which will be decided by the hospitalist taking care of her. Patient will be seen in cardiology outpatient clinic in 1 week. Addendum MD Mariana: The patient was seen and examined with . I agree with her note above. VS,Fishbone, I+O VS, Fishbone, I+O Laboratory Tests 08/19/20 05:57 Vital Signs Date Time Temp Pulse Resp B/P (MAP) Pulse Ox O2 Delivery O2 Flow Rate FiO2 08/19/20 06:00 98.2 83 16 105/66 (79) 94 Nasal Cannula 2.0 I&O- Last 24 Hours up to 6 AM 08/19/20 06:00 Intake Total 1340 ml Output Total 1300 ml Balance 40 ml Simone Sol MD August 19, 2020 10:58 Shankar Patton MD August 22, 2020 18:58
[2020-08-19] MEDS: ONDANSETRON 4MG/2ML VIAL IV PRN (11:51)
--- NOTE | 2020-08-19 14:52 | DS.PDOC ---
Discharge Summary General Date of Admission August 14, 2020 at 10:24 Date of Discharge 08/19/20 Discharge Summary PROCEDURES PERFORMED DURING STAY: [None]. ADMITTING DIAGNOSES: combined systolic and diastolic CHF (congestive heart failure) Type 2 diabetes mellitus Hypertension Hyperlipidemia Depression Asthma AMINATA Hypotension DISCHARGE DIAGNOSES: combined systolic and diastolic CHF (congestive heart failure) Type 2 diabetes mellitus Hypertension Hyperlipidemia Depression Asthma AMINATA Hypotension COMPLICATIONS/CHIEF COMPLAINT: CHF. HISTORY OF PRESENT ILLNESS: Patient is 55 years old female with past history of hypertension, asthma, hyperlipidemia, type 2 diabetes presented to the hospital with increased shortness of breath. Patient stated that for past week she has been having increased shortness of breath on exertion. Shortness of breath getting progressively worse, patient reported orthopnea and arms swelling. Patient denied fever, chills, nausea, vomiting, diarrhea or dysuria. Patient is active smoker. Patient denied wheezes, sputum production. She reported cough when she lying flat. In the emergency room patient was found to have normal lactic acid, troponin with in normal limit, BNP 1438. EKG did not show any acute ischemic changes. X-ray showed increased interstitial markings. HOSPITAL COURSE: During hospital stay following issue addressed (1) combined systolic and diastolic CHF (congestive heart failure) Most likely secondary to cocaine abuse and poorly controlled hypertension Patient had positive JVD, orthopnea, elevated BNP on admission Echo showed Normal LV size with severe global hypokinesis and overall estimated LVEF around 30% to 35%. Grade 2 diastolic dysfunction I's and O's Cardiology team started lisinopril (2) Type 2 diabetes mellitus Insulin sliding scale Diabetes diet (3) Hypertension Continue home cardioprotective medications with parameters (4) Hyperlipidemia continue atorvastatin (5) Depression Continue home medications (6) Asthma Not in acute exacerbation Continue inhalers AMINATA Resolved Hypotension Resolved DISCHARGE MEDICATIONS: Please see below. ALLERGIES: Please see below. PHYSICAL EXAMINATION ON DISCHARGE: VITAL SIGNS: Please see below. GENERAL APPEARANCE: NAD HEENT: no scleral icterus, no JVD, EOMI CARDIOVASCULAR: S1S2 LUNGS: CTA ABDOMEN: soft & not tender w palpitation MUSCULOSKELETAL: no cyanosis, no swelling INTEGUMENT: no generalized pallor NEUROLOGICAL: cranial nerve function from 2-12 intact intact, follows commands, speech not dysarthric LABORATORY DATA: Please see below. IMAGING: See above PROGNOSIS: Fair ACTIVITY: [As tolerated]. DIET: Cardiac DISPOSITION: Home, Self-Care. 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 TIME SPENT ON DISCHARGE: 40 minutes. Vital Signs/I&Os Vital Signs Date Time Temp Pulse Resp B/P (MAP) Pulse Ox O2 Delivery O2 Flow Rate FiO2 08/19/20 12:15 89 Room Air 08/19/20 09:00 0.0 08/19/20 06:00 98.2 83 16 105/66 (79) I&O- Last 24 Hours up to 6 AM 08/19/20 06:00 Intake Total 1340 ml Output Total 1300 ml Balance 40 ml Laboratory Data Labs 24H Laboratory Tests 2 08/18/20 16:47: Bedside Glucose (Misc Panel) 162H 08/18/20 20:37: Bedside Glucose (Misc Panel) 129H 08/19/20 05:57: Immature Granulocyte % (Auto) 0.2, Neutrophils (%) (Auto) 46.0, Lymphocytes (%) (Auto) 46.0H, Monocytes (%) (Auto) 5.8, Eosinophils (%) (Auto) 1.5, Basophils (%) (Auto) 0.5, Neutrophils # (Auto) 4.4, Lymphocytes # (Auto) 4.4, Monocytes # (Auto) 0.6, Eosinophils # (Auto) 0.1, Basophils # (Auto) 0.1, Nucleated Red Blood Cells % (auto) 0.0, Anion Gap 4L, Glomerular Filtration Rate > 60.0, Calcium Level 9.4, Magnesium Level 1.9, Total Bilirubin 0.6, Aspartate Amino Transf (AST/SGOT) 31, Alanine Aminotransferase (ALT/SGPT) 34, Alkaline Phosphatase 114, Total Protein 7.4, Albumin 3.4, Albumin/Globulin Ratio 0.9L 08/19/20 11:37: Bedside Glucose (Misc Panel) 129H CBC/BMP Laboratory Tests 08/19/20 05:57 FSBS Laboratory Tests Test 08/18/20 16:47 08/18/20 20:37 08/19/20 11:37 Range/Units Bedside Glucose (Misc Panel) 162 129 129 70-105 MG/DL Microbiology Microbiology 08/15/20 Blood Culture - Preliminary, Resulted No Growth after 72 hours. All specime... 08/15/20 Blood Culture - Preliminary, Resulted No Growth after 72 hours. All specime... 08/14/20 Blood Culture - Final, Complete NO GROWTH AFTER 5 DAYS 08/14/20 Respiratory Virus Panel (PCR) ([facility]) - Final, Complete 08/14/20 Blood Culture - Final, Complete Micrococcus Luteus Discharge Medications Scheduled Aripiprazole (Aripiprazole) 5 Mg Tablet, 5 MG PO DAILY, (Reported) Chlorthalidone (Chlorthalidone) 25 Mg Tablet, 25 MG PO DAILY, (Reported) Furosemide (Lasix) 20 Mg Tablet, 1 TAB PO DAILY Lisinopril (Lisinopril) 2.5 Mg Tablet, 2.5 MG PO QHS Oxcarbazepine (Trileptal) 300 Mg Tablet, 300 MG PO BID, (Reported) Quetiapine Fumarate (Quetiapine Fumarate) 400 Mg Tablet, 200 MG PO QHS, (Reported) Sertraline Hcl (Zoloft) 100 Mg Tablet, 150 MG PO DAILY, (Reported) Spironolactone (Spironolactone) 25 Mg Tablet, 12.5 TAB PO DAILY Scheduled PRN Metformin HCl (Metformin HCl) 500 Mg Tablet, 500 MG PO BID PRN for HYPERGLYCEMIA, (Reported) Allergies Coded Allergies: Penicillins (Verified Allergy, Unknown, ITCHING , 10/29/18) FINA KHAN DO August 19, 2020 14:52
== END 2020-08-19 13:25 | disposition home or self-care (01) | DRG 194 ==
LOC: M ED 08:08 → M ED INP 10:24 → M MSPAV 15:06
PROVIDERS: ADMIT Internal Medicine; ATTEND Internal Medicine
DX: I11.0 Hypertensive heart disease with heart failure (principal); N17.9 Acute kidney failure, unspecified; E11.65 Type 2 diabetes mellitus with hyperglycemia; R06.01 Orthopnea; J45.909 Unspecified asthma, uncomplicated; E78.5 Hyperlipidemia, unspecified; F17.210 Nicotine dependence, cigarettes, uncomplicated; Z79.899 Other long term (current) drug therapy; Z88.0 Allergy status to penicillin; Z90.79 Acquired absence of other genital organ(s); Z20.822 Contact with and (suspected) exposure to COVID-19; F32.9 Major depressive disorder, single episode, unspecified; F43.10 Post-traumatic stress disorder, unspecified; F41.9 Anxiety disorder, unspecified; R07.1 Chest pain on breathing; I50.43 Acute on chronic combined systolic (congestive) and diastolic (congestive) heart failure; I95.9 Hypotension, unspecified; F14.10 Cocaine abuse, uncomplicated

== ENCOUNTER → 2020-09-09 | Outpatient (CLI) | payer OTHER ==
[~2020-09-09] MED LIST changes: +ARIP1TAB6 PO; +LASI20TA3 PO; +LISI10TA22 PO; +LISI2.5T2 PO; +QUET400T PO; +TRIL1TAB PO
== END ==
LOC: M LABSMTC 11:54
PROVIDERS: ATTEND Internal Medicine Cardiovascular Disease
DX: Z20.822 Contact with and (suspected) exposure to COVID-19 (principal)

== ENCOUNTER 2020-12-12 14:47 | Inpatient (IN) | payer OTHER ==
[~2020-12-12] VITALS: Ht 149.9 cm; Wt 72.5 kg
[~2020-12-12 14:47] MED LIST changes: -DOXY100C37; +DOXY1CAP62; -LISI2.5T2 PO; +LISI2.5T9 PO; -OLAN15TA PO; +OLAN15TA13 PO; +OMEP40CA4 PO; -OMEP40CA97 PO; +QUET1TAB17 PO; -QUET25TA3 PO; -QUET400T PO; +QUET400T2 PO
[2020-12-12] MEDS ORDERED: METO1TAB87 PO (15:31)
[2020-12-12] MEDS ORDERED: LISI10TA22 PO (15:31)
[2020-12-12] MEDS ORDERED: ATOR40TA75 PO (15:31)
[2020-12-12] MEDS ORDERED: QUET400T2 PO (15:31)
[2020-12-12] MEDS ORDERED: ASPI-226 PO (15:31)
--- NOTE | 2020-12-12 16:15 | REP ---
INDICATION: SOB COMPARISON: 08/14/2020 TECHNIQUE: Portable AP view of the chest FINDINGS: Diffuse vague bilateral airspace disease is suggested. No discrete focal consolidation. No effusion. No pneumothorax. Mediastinum and cardiac silhouette are stable. Skeletal structures are intact. IMPRESSION: Findings suggest a diffuse pulmonary infectious/inflammatory process. <Electronically signed by Kyle Mcgraw > 12/12/20 0545
[2020-12-12 16:32] LABS: HEMATOCRIT 38.4 % (36.0-47.0); HEMOGLOBIN 12.1 g/dl (12.0-15.5); MEAN CORPUSCULAR HEMOGLOBIN 25.6 pg (27.0-33.0); MEAN CORPUSCULAR HGB CONC 31.5 g/dl (32.0-36.5); MEAN CORPUSCULAR VOLUME 81.2 fl (80.0-96.0); PLATELET COUNT, AUTOMATED 262 10^3/uL (150-450); RED BLOOD COUNT 4.73 10^6/uL (4.00-5.40); WHITE BLOOD COUNT 12.7 10^3/uL (4.0-10.0)
[2020-12-12 17:04] LABS: ATYPICAL LYMPH 4 % (0-5); BASOPHILS 1 % (0-1); EOSINOPHILS 1 % (0-3); LYMPHOCYTES 32 % (16-44); MONOCYTES 2 % (0-5); NEUTROPHILS 59 % (28-66)
[2020-12-12 17:07] LABS: ANISOCYTOSIS 1+; PLATELET ESTIMATE NORMAL (NORMAL); SMUDGE CELLS 1+
[2020-12-12 17:09] LABS: BLOOD UREA NITROGEN 16 MG/DL (7-18); CALCIUM LEVEL 8.8 MG/DL (8.5-10.1); CARBON DIOXIDE LEVEL 26 MEQ/L (21-32); CHLORIDE LEVEL 112 MEQ/L (98-107); CK-MB VALUE MASS 1.7 NG/ML (<3.6); CPK CREATINE PHOSPHOKINASE 156 U/L (26-192); CREATININE FOR GFR 0.84 MG/DL (0.55-1.30); GLOMERULAR FILTRATION RATE > 60.0 (>51); GLUCOSE, FASTING 67 MG/DL (70-100); MAGNESIUM LEVEL 1.9 MG/DL (1.8-2.4); MB/CK RELATIVE INDEX 1.09 (< OR =4); NT-PRO BNP 1840 PG/ML (<125); POLYCHROMASIA 1+; POTASSIUM SERUM 4.3 MEQ/L (3.5-5.1); SODIUM LEVEL 143 MEQ/L (136-145); TROPONIN I < 0.02 NG/ML (< 0.10)
[2020-12-12] MEDS ORDERED: LevoFLOXacin IV 750 MG in IV 1 EA IV ONE (18:10)
[2020-12-12] MEDS ORDERED: FUROSEMIDE 40MG/4ML VIAL (J1940) IV ONE (18:20)
[2020-12-12 19:19] LABS: RSV AMPLIFICATION NEGATIVE (NEGATIVE)
[2020-12-12] MEDS ORDERED: SPIR-10 PO (19:23)
[2020-12-12] MEDS ORDERED: PRED10TA2 PO (19:24)
[2020-12-12] MEDS ORDERED: HOME MED LIST COMPLETE! XX SCH (19:25)
--- NOTE | 2020-12-12 19:29 | ECGEPIP ---
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
[2020-12-12] MEDS ORDERED: QUEtiapine FUMARATE 200 MG TAB PO SCH (21:00)
[2020-12-12] MEDS ORDERED: HumaLOG INSULIN (NovoLOG) PER UNIT SC SCH (21:00)
[2020-12-12 21:15] VITALS: BP 140/92
[2020-12-12] MEDS: NICOTINE 21MG/24HR 1 EA TRANSDERMAL TD SCH (21:24)
[2020-12-12 21:54] LABS: AMPHETAMINES LEVEL URINE NEGATIVE (NEGATIVE); BARBITURATES URINE NEGATIVE (NEGATIVE); BENZODIAZEPINES URINE NEGATIVE (NEGATIVE); CANNABINOIDS URINE NEGATIVE (NEGATIVE); COCAINE METABOLITE URINE POSITIVE (NEGATIVE); METHADONE URINE NEGATIVE (NEGATIVE); OPIATES URINE NEGATIVE (NEGATIVE); PHENCYCLIDINE URINE NEGATIVE (NEGATIVE)
[2020-12-12] MEDS ORDERED: GLUCAGON INJ 1MG VIAL SC PRN (22:30)
[2020-12-12] MEDS ORDERED: GLUCOSE 4GM CHEW TABLET PO PRN (22:30)
[2020-12-12] MEDS ORDERED: DEXTROSE 50% 50 ML SYRINGE IV PRN (22:30)
[2020-12-12] MEDS ORDERED: ACETAMINOPHEN TAB 650MG DOSE (2X325MG) PO PRN (23:45)
[2020-12-13 04:00] VITALS: BP 129/76
[2020-12-13 04:29] LABS: HEMATOCRIT 38.4 % (36.0-47.0); HEMOGLOBIN 12.4 g/dl (12.0-15.5); MEAN CORPUSCULAR HEMOGLOBIN 25.9 pg (27.0-33.0); MEAN CORPUSCULAR HGB CONC 32.3 g/dl (32.0-36.5); MEAN CORPUSCULAR VOLUME 80.2 fl (80.0-96.0); PLATELET COUNT, AUTOMATED 274 10^3/uL (150-450); RED BLOOD COUNT 4.79 10^6/uL (4.00-5.40); WHITE BLOOD COUNT 11.2 10^3/uL (4.0-10.0)
[2020-12-13 04:51] LABS: BLOOD UREA NITROGEN 17 MG/DL (7-18); C REACTIVE PROTEIN QUANTITATIV 0.85 MG/DL (0.00-0.30); CALCIUM LEVEL 8.6 MG/DL (8.5-10.1); CARBON DIOXIDE LEVEL 27 MEQ/L (21-32); CHLORIDE LEVEL 109 MEQ/L (98-107); CREATININE FOR GFR 0.86 MG/DL (0.55-1.30); GLOMERULAR FILTRATION RATE > 60.0 (>51); GLUCOSE, FASTING 135 MG/DL (70-100); MAGNESIUM LEVEL 1.7 MG/DL (1.8-2.4); POTASSIUM SERUM 3.2 MEQ/L (3.5-5.1); SODIUM LEVEL 142 MEQ/L (136-145)
[2020-12-13 07:27] VITALS: BP 133/68
[2020-12-13] MEDS ORDERED: HumaLOG INSULIN (NovoLOG) PER UNIT SC SCH (07:30)
[2020-12-13] MEDS ORDERED: POTASSIUM CHLORIDE 10 MEQ SR TABLET PO ONE (08:00)
[2020-12-13] MEDS ORDERED: LEVO750T13 PO (08:23)
[2020-12-13] MEDS ORDERED: FURO20TA2 PO (08:23)
[2020-12-13 08:51] VITALS: BP 133/68
[2020-12-13] MEDS: NICOTINE 21MG/24HR 1 EA TRANSDERMAL TD SCH (08:53)
[2020-12-13] MEDS ORDERED: ASPIRIN 81MG ENTERIC TABLET PO SCH (09:00)
[2020-12-13] MEDS ORDERED: FUROSEMIDE 20 MG TAB PO SCH (09:00)
[2020-12-13] MEDS ORDERED: predniSONE 10 MG TAB PO SCH (09:00)
[2020-12-13] MEDS ORDERED: ATORVASTATIN 20 MG TAB PO SCH (09:00)
[2020-12-13] MEDS ORDERED: SPIRONOLACTONE 12.5MG PER 1/2 TABLET PO SCH (09:00)
[2020-12-13] MEDS ORDERED: FUROSEMIDE 40MG/4ML VIAL (J1940) IV SCH (09:00)
[2020-12-13] MEDS ORDERED: ENOXAPARIN 40MG/0.4ML SYRINGE (J1650 PER 10MG) SC SCH (09:00)
--- NOTE | 2020-12-13 15:01 | DS.PDOC ---
Discharge Summary General Date of Admission Dec 12, 2020 at 18:49 Date of Discharge Dec 13, 2020 Discharge Summary PROCEDURES PERFORMED DURING STAY: None ADMITTING DIAGNOSES: 1. Acute decompensated heart failure with reduced ejection fraction 2. Cocaine use disorder 3. Leukocytosis 4. Diabetes mellitus type 2 5. Hyperlipidemia 6. Mood disorder DISCHARGE DIAGNOSES: 1. Acute decompensated heart failure with reduced ejection fraction 2. Cocaine use disorder 3. Leukocytosis 4. Diabetes mellitus type 2 5. Hyperlipidemia 6. Mood disorder COMPLICATIONS/CHIEF COMPLAINT: Chf Exacerbation. HISTORY OF PRESENT ILLNESS: Mrs. Dorantes is a 55-year-old female with heart failure with reduced ejection fraction and cocaine use who presents with orthopnea and exertional dyspnea. She was recently diagnosed with CHF about 1 month ago. She was on p.o. Lasix, but then she was switched to spironolactone. She tells me that they told her to avoid salt, but she still likes to sprinkle salt on food for taste. She did try DASH, but it had no taste. In addition she also ate canned soup. Explained to her that salt brings in a lot of fluid and it would cause fluid buildup in her lungs. I told her that she should not use salt and to avoid canned soup and cold cuts as they contain hidden salts. Otherwise, about 2 weeks ago, she noticed that she was having exertional dyspnea and bilateral lower extremity swelling. The lower extremity swelling is worse by the end of the day and if she is on her feet frequently. It progressively got worse and she developed orthopnea. She came into the ED for evaluation today. Her BNP was elevated and she also had leukocytosis. She is given a dose of Lasix and Levaquin. Procalcitonin was ordered. Otherwise, patient tells me that she last used cocaine 3 days ago. She is also on metoprolol. I told her that beta-blockers do not mix well with cocaine. Patient will be admitted for CHF exacerbation HOSPITAL COURSE: Patient's acute decompensated heart failure was secondary to dietary noncompliance. She was diuresed with IV Lasix. She recovered quicker than expected. The following day her shortness of breath is resolved. She is able to ambulate without any issue, and she felt ready for home. She was discharged with p.o. Lasix. Her metoprolol was discontinued. Patient reports cocaine use 3 days ago and her urine tox for cocaine was positive. Patient should not be on metoprolol and cocaine at the same time. Otherwise, she was discharged with 4 more days of levofloxacin. At time of discharge, her procalcitonin had not returned, and she was being treated for suspected pneumonia due to imaging and leukocytosis. DISCHARGE MEDICATIONS: Please see below. ALLERGIES: Please see below. PHYSICAL EXAMINATION ON DISCHARGE: VITAL SIGNS: Please see below. GENERAL: Comfortable, in no apparent distress. HEENT: Head normocephalic/atraumatic, EOMI, sclera clear. NECK: Supple. RESPIRATORY: Lungs clear to auscultation bilaterally, no rales, wheeze or rhonchi. CARDIOVASCULAR: Regular rate and rhythm. ABDOMEN: Soft, nontender, no guarding or rebound tenderness. Normal bowel sounds. MUSCLE SKELETAL: Muscle strength 5/5 in all extremities. NEUROLOGICAL: CN 312 grossly intact, no focal deficits noted. PSYCHOLOGICAL: Normal mood and affect LABORATORY DATA: Please see below. IMAGING: Radiologist interpretation Chest x-ray Findings suggest a diffuse pulmonary infectious/inflammatory process. PROGNOSIS: Good ACTIVITY: As tolerated. DIET: 2 g sodium diet and carbohydrate consistent diet DISCHARGE PLAN: Home DISPOSITION: Home, Self-Care. DISCHARGE INSTRUCTIONS: 1. Follow-up with your PCP in 1 week 2. Follow-up with your ceramic worker, Dr. Patton in 1 week [address] Patton about your diuretics and your beta-dean (as you are still taking cocaine) 4. Take antibiotic to completion ITEMS TO FOLLOWUP ON ON OUTPATIENT: 1. Procalcitonin result 2. Potassium level DISCHARGE CONDITION: Stable Total time spent on discharge planning, discharge summary, medication reconciliation: 40 minutes Vital Signs/I&Os Vital Signs Date Time Temp Pulse Resp B/P (MAP) Pulse Ox O2 Delivery O2 Flow Rate FiO2 12/13/20 08:51 133/68 12/13/20 07:27 97.2 94 16 96 Room Air I&O- Last 24 Hours up to 6 AM 12/13/20 05:59 Output Total 2250 ml Balance -2250 ml Laboratory Data Labs 24H Laboratory Tests 2 12/12/20 16:04: Neutrophils (%) (Auto) , Nucleated Red Blood Cells % (auto) 0.0, Neutrophils 59, Band Neutrophils 1, Lymphocytes (Manual) 32, Monocytes (Manual) 2, Eosinophils (Manual) 1, Basophils (Manual) 1, Atypical Lymphocytes 4, Polychromasia 1+, Anisocytosis 1+, Smudge Cells 1+, Platelet Estimate NORMAL, Anion Gap 5L, Glomerular Filtration Rate > 60.0, Calcium Level 8.8, Magnesium Level 1.9, Total Creatine Kinase 156, Creatine Kinase MB 1.7, Creatine Kinase MB Relative Index 1.09, Troponin I < 0.02, CB-Oki-L-Type Natriuretic Peptide 1840H 12/12/20 18:25: Procalcitonin <0.05, Coronavirus (COVID-19)(PCR) NEGATIVE, Influenza Type A (RT-PCR) NEGATIVE, Influenza Type B (RT-PCR) NEGATIVE, Respiratory Syncytial Virus (PCR) NEGATIVE 12/12/20 20:27: Urine Color COLORLESS, Urine Appearance CLEAR, Urine pH 6.0, Urine Specific [place] 1.004, Urine Protein NEGATIVE, Urine Glucose (UA) NEGATIVE, Urine Ketones NEGATIVE, Urine Blood NEGATIVE, Urine Nitrite NEGATIVE, Urine Bilirubin NEGATIVE, Urine Urobilinogen 0.2, Urine Leukocyte Esterase NEGATIVE, Urine WBC (Auto) 0, Urine RBC (Auto) 0, Urine Hyaline Casts (Auto) 0, Urine Bacteria (Auto) NEGATIVE, Urine Squamous Epithelial Cells 1, Urine Sperm (Auto) , Urine Opiates Screen NEGATIVE, Urine Methadone Screen NEGATIVE, Urine Barbiturates Screen NEGATIVE, Urine Phencyclidine Screen NEGATIVE, Urine Amphetamines Screen NEGATIVE, Urine Benzodiazepines Screen NEGATIVE, Urine Cocaine Metabolite Screen POSITIVEH, Urine Cannabinoids Screen NEGATIVE 12/12/20 22:42: Bedside Glucose (Misc Panel) 146H 12/13/20 04:01: Nucleated Red Blood Cells % (auto) 0.0, Anion Gap 6L, Glomerular Filtration Rate > 60.0, Calcium Level 8.6, Magnesium Level 1.7L, C-Reactive Protein, Quantitative 0.85H CBC/BMP Laboratory Tests 12/12/20 16:04 12/13/20 04:01 FSBS Laboratory Tests Test 12/12/20 22:42 Range/Units Bedside Glucose (Misc Panel) 146 70-105 MG/DL Discharge Medications Scheduled Aspirin (Aspirin EC) 81 Mg Tablet.dr, 81 MG PO DAILY, (Reported) Atorvastatin Calcium (Atorvastatin Calcium) 40 Mg Tablet, 40 MG PO DAILY, (Rep orted) Furosemide (Furosemide) 20 Mg Tablet, 20 MG PO DAILY Levofloxacin (Levofloxacin) 750 Mg Tablet, 750 MG PO DAILY Lisinopril (Lisinopril) 10 Mg Tablet, 10 MG PO DAILY, (Reported) Metformin HCl (Metformin HCl) 500 Mg Tablet, 500 MG PO BID, (Reported) Metoprolol Tartrate (Metoprolol Tartrate) 25 Mg Tablet, 0.5 TAB PO BID, (Reported) Prednisone (Prednisone) 10 Mg Tablet, 10 MG PO DAILY, (Reported) Quetiapine Fumarate (Quetiapine Fumarate) 400 Mg Tablet, 400 MG PO QHS, (Reported) Spironolactone (Spironolactone) 25 Mg Tablet, 12.5 MG PO DAILY, (Reported) Allergies Coded Allergies: Penicillins (Verified Allergy, Unknown, ITCHING , 10/29/18) TIFFANIE HENSON DO Dec 13, 2020 15:01
[2020-12-13] MEDS ORDERED: LevoFLOXacin IV 750 MG in IV 1 EA IV SCH (20:00)
== END 2020-12-13 10:04 | disposition home or self-care (01) | DRG 194 ==
LOC: M ED 14:47 → M ED INP 18:49 → ENRESERVTM 19:48 → ENRESERVDT 19:48 → M PCU 21:10
PROVIDERS: ADMIT Internal Medicine; ATTEND Internal Medicine
DX: I11.0 Hypertensive heart disease with heart failure (principal); F32.9 Major depressive disorder, single episode, unspecified; E11.9 Type 2 diabetes mellitus without complications; D64.9 Anemia, unspecified; F14.10 Cocaine abuse, uncomplicated; I50.33 Acute on chronic diastolic (congestive) heart failure; J45.909 Unspecified asthma, uncomplicated; E78.5 Hyperlipidemia, unspecified; M54.5 Low back pain; F43.10 Post-traumatic stress disorder, unspecified; F41.9 Anxiety disorder, unspecified; N39.3 Stress incontinence (female) (male); F17.210 Nicotine dependence, cigarettes, uncomplicated; Z20.822 Contact with and (suspected) exposure to COVID-19; Z91.11 Patient's noncompliance with dietary regimen; Z79.82 Long term (current) use of aspirin; Z79.84 Long term (current) use of oral hypoglycemic drugs; Z79.52 Long term (current) use of systemic steroids; Z79.899 Other long term (current) drug therapy

== ENCOUNTER → 2020-12-28 | Outpatient (REF) | payer OTHER ==
[~2020-12-28] MED LIST changes: +ASPI-226 PO; +FURO20TA2 PO; +LEVO750T13 PO; +METO1TAB87 PO; +PRED10TA2 PO
[2020-12-28 14:23] LABS: BLOOD UREA NITROGEN 23 MG/DL (7-18); CALCIUM LEVEL 9.4 MG/DL (8.5-10.1); CARBON DIOXIDE LEVEL 29 MEQ/L (21-32); CHLORIDE LEVEL 104 MEQ/L (98-107); CREATININE FOR GFR 1.02 MG/DL (0.55-1.30); GLOMERULAR FILTRATION RATE > 60.0 (>51); GLUCOSE, FASTING 119 MG/DL (70-100); POTASSIUM SERUM 4.3 MEQ/L (3.5-5.1); SODIUM LEVEL 141 MEQ/L (136-145)
[2020-12-28 14:24] LABS: ALBUMIN 3.5 GM/DL (3.2-5.2); ALT/SGPT 25 U/L (12-78); BILIRUBIN,TOTAL 0.4 MG/DL (0.2-1.0); FREE T4 1.18 NG/DL (0.76-1.46); TOTAL 25(OH) VITAMIN D 18.7 NG/ML (30.0-100.0); TOTAL PROTEIN 6.9 GM/DL (6.4-8.2); VITAMIN B12 LEVEL 1053 PG/ML
[2020-12-28 15:40] LABS: HEMOGLOBIN A1c 6.6 %
== END ==
LOC: M SFHCADAM 07:39
PROVIDERS: ATTEND Physician Assistant
DX: E11.9 Type 2 diabetes mellitus without complications (principal); I50.22 Chronic systolic (congestive) heart failure

== ENCOUNTER → 2021-06-06 | Outpatient (CLI) | payer OTHER ==
[~2021-06-06] MED LIST changes: +DOXY-443; -DOXY1CAP62
== END ==
LOC: M LABSMTC 11:57
PROVIDERS: ATTEND Anesthesiology
DX: Z01.818 Encounter for other preprocedural examination (principal); Z11.52 Encounter for screening for COVID-19

== ENCOUNTER 2021-08-05 13:03 | Emergency (ER) | payer OTHER ==
[~2021-08-05] VITALS: Ht 149.9 cm; Wt 73.6 kg
[2021-08-05 13:04] VITALS: BP 137/88
== END 2021-08-05 13:26 | disposition left against medical advice (07) ==
LOC: M ED 13:03
DX: Z53.29 Procedure and treatment not carried out because of patient's decision for other reasons (principal)

== ENCOUNTER → 2021-08-13 | Outpatient (CLI) | payer OTHER | LOC: M LABSMTC 10:18 | PROVIDERS: ATTEND Anesthesiology | DX: Z01.812 Encounter for preprocedural laboratory examination (principal); Z20.822 Contact with and (suspected) exposure to COVID-19 ==

== ENCOUNTER → 2021-09-01 | Outpatient (REF) | payer OTHER ==
[2021-09-01 16:35] LABS: APPEARANCE, URINE HAZY (CLEAR); BACTERIA, URINE AUTO NEGATIVE (NEGATIVE); BILIRUBIN, URINE AUTO NEGATIVE (NEGATIVE); BLOOD, URINE BLOOD NEGATIVE (NEGATIVE); COLOR, URINE AMBER (YELLOW); GLUCOSE, URINE (UA) AUTO NEGATIVE (NEGATIVE); KETONE, URINE AUTO TRACE mg/dL (NEGATIVE); LEUKOCYTE ESTERASE, URINE AUTO NEGATIVE (NEGATIVE); MUCUS, URINE SMALL (NEGATIVE); NITRITE, URINE AUTO NEGATIVE (NEGATIVE); PROTEIN, URINE AUTO NEGATIVE (NEGATIVE); RBC, URINE AUTO 0 /HPF (0-3); SPECIFIC GRAVITY URINE AUTO 1.028 (1.002-1.035); SQUAMOUS EPITHELIAL CELL UR AU 1 /HPF (0-6); WBC, URINE AUTO 1 /HPF (0-3)
== END ==
LOC: M SFHCADAM 11:44
PROVIDERS: ATTEND Physician Assistant Medical
DX: R31.29 Other microscopic hematuria (principal); K82.8 Other specified diseases of gallbladder

== ENCOUNTER → 2021-09-29 | Outpatient (CLI) | payer OTHER | LOC: M WHC 08:42 | PROVIDERS: ATTEND Physician Assistant Medical | DX: K82.8 Other specified diseases of gallbladder (principal) ==

== ENCOUNTER → 2022-04-22 | Outpatient (REF) | payer OTHER ==
[~2022-04-22] MED LIST changes: +LEVO1TAB40 PO; -LEVO750T13 PO
== END ==
LOC: M SFHCADAM 08:41
PROVIDERS: ATTEND Physician Assistant
DX: Z53.9 Procedure and treatment not carried out, unspecified reason (principal)

== ENCOUNTER → 2022-11-28 | Outpatient (REF) | payer OTHER | LOC: M SFHCADAM 14:08 | PROVIDERS: ATTEND Physician Assistant Medical | DX: Z53.9 Procedure and treatment not carried out, unspecified reason (principal) ==

== ENCOUNTER 2022-12-03 09:41 | Inpatient (IN) | payer OTHER ==
[~2022-12-03] VITALS: Ht 149.9 cm; Wt 60.6 kg
[2022-12-03] MEDS ORDERED: ONDANSETRON 4MG 2ML VIAL IV ONE (11:15)
[2022-12-03] MEDS ORDERED: MORPHINE 4 MG/ML 1ML VIAL IV ONE (11:15)
[2022-12-03] MEDS ORDERED: NS 500 ML IV ONE ×2 (11:15→12:25)
[2022-12-03 11:55] LABS: HEMATOCRIT 45.2 % (36.0-47.0); HEMOGLOBIN 14.3 g/dl (12.0-15.5); MEAN CORPUSCULAR HEMOGLOBIN 25.8 pg (27.0-33.0); MEAN CORPUSCULAR HGB CONC 31.6 g/dl (32.0-36.5); MEAN CORPUSCULAR VOLUME 81.4 fl (80.0-96.0); PLATELET COUNT, AUTOMATED 296 10^3/uL (150-450); RED BLOOD COUNT 5.55 10^6/uL (4.00-5.40); WHITE BLOOD COUNT 13.9 10^3/uL (4.0-10.0)
[2022-12-03 12:06] LABS: ALBUMIN 4.2 G/DL (3.2-5.2); BILIRUBIN,DIRECT 0.2 MG/DL (<0.4); BILIRUBIN,TOTAL 0.4 MG/DL (0.3-1.2); CALCIUM LEVEL 9.8 MG/DL (8.5-10.1); CREATININE FOR GFR 3.31 MG/DL (0.55-1.30); GLOMERULAR FILTRATION RATE 18.7 (>51); TOTAL PROTEIN 7.9 G/DL (5.7-8.2)
[2022-12-03 12:26] LABS: ATYPICAL LYMPH 22 % (0-5); LYMPHOCYTES 22 % (16-44); MONOCYTES 5 % (0-5); NEUTROPHILS 51 % (28-66); PLATELET ESTIMATE NORMAL (NORMAL)
[2022-12-03] MEDS ORDERED: PANTOPRAZOLE 40MG VIAL IV ONE (12:45)
[2022-12-03] MEDS ORDERED: ONDANSETRON 4MG 2ML VIAL IV PRN (13:05)
[2022-12-03] MEDS: LR 1,000 ML IV SCH (13:05)
[2022-12-03] MEDS ORDERED: MED REC IN PROGRESS XX SCH (13:40)
[2022-12-03] MEDS ORDERED: GLUCAGON INJ 1MG VIAL SC PRN (14:05)
[2022-12-03] MEDS ORDERED: GLUCOSE 4GM CHEW TABLET PO PRN (14:05)
[2022-12-03] MEDS ORDERED: DEXTROSE 50% 50ML SYRINGE IV PRN (14:05)
[2022-12-03 14:45] LABS: MONO SCRN NEGATIVE (NEGATIVE)
[2022-12-03] MEDS ORDERED: EZET10TA21 PO (14:51)
[2022-12-03] MEDS ORDERED: TORS100T PO (14:51)
[2022-12-03] MEDS ORDERED: NICO21DI38 (14:51)
[2022-12-03] MEDS ORDERED: HOME MED LIST COMPLETE! XX SCH (15:00)
[2022-12-03] MEDS ORDERED: MORPHINE 4 MG/ML 1ML VIAL IV PRN (15:05)
[2022-12-03 15:06] LABS: PROCALCITONIN 0.05 ng/ml
[2022-12-03 15:20] VITALS: BP 99/62; TEMP 97.5; O2SAT 99
[2022-12-03 15:23] LABS: C REACTIVE PROTEIN QUANTITATIV < 0.40 MG/DL (<1.0)
[2022-12-03] MEDS: METOCLOPRAMIDE INJ 10MG/2ML VIAL IV SCH ×2 (17:10→20:04)
[2022-12-03] MEDS: INSULIN LISPRO (NovoLOG) PER UNIT SC SCH ×2 (17:11→20:05)
[2022-12-03 20:01] VITALS: BP 95/59; TEMP 97.5; O2SAT 98
[2022-12-03] MEDS: PANTOPRAZOLE 40MG VIAL IV SCH (20:04)
[2022-12-03] MEDS ORDERED: QUEtiapine FUMARATE 200 MG TAB PO SCH (21:00)
[2022-12-04] MEDS: LR 1,000 ML IV SCH (02:44)
[2022-12-04 06:00] VITALS: BP 91/57; TEMP 98.5; O2SAT 98
[2022-12-04 06:14] LABS: HEMATOCRIT 33.1 % (36.0-47.0); MEAN CORPUSCULAR HEMOGLOBIN 25.8 pg (27.0-33.0); MEAN CORPUSCULAR HGB CONC 31.1 g/dl (32.0-36.5); PLATELET COUNT, AUTOMATED 215 10^3/uL (150-450); RED BLOOD COUNT 3.99 10^6/uL (4.00-5.40); WHITE BLOOD COUNT 9.7 10^3/uL (4.0-10.0)
[2022-12-04 06:23] LABS: HEMOGLOBIN 10.3 g/dl (12.0-15.5)
[2022-12-04 06:40] LABS: CALCIUM LEVEL 8.3 MG/DL (8.5-10.1); CREATININE FOR GFR 1.65 MG/DL (0.55-1.30); GLOMERULAR FILTRATION RATE 41.7 (>51); MAGNESIUM LEVEL 1.6 MG/DL (1.8-2.4); POTASSIUM SERUM 4.9 MMOL/L (3.5-5.1)
[2022-12-04] MEDS: INSULIN LISPRO (NovoLOG) PER UNIT SC SCH ×4 (07:30→20:38)
[2022-12-04] MEDS: METOPROLOL TART 12.5 MG PER 1/2 TAB PO SCH ×2 (09:00→20:55)
[2022-12-04] MEDS: NICOTINE 21MG/24HR 1 EA TRANSDERMAL EXT SCH (09:00)
[2022-12-04] MEDS ORDERED: MAALOX 30 ML SUSP *UDC PO ONE (09:00)
[2022-12-04] MEDS: ENOXAPARIN 40MG/0.4ML SYRINGE (J1650 PER 10MG) SC SCH (09:04)
[2022-12-04] MEDS: PANTOPRAZOLE 40MG VIAL IV SCH ×2 (09:05→20:55)
[2022-12-04] MEDS: METOCLOPRAMIDE INJ 10MG/2ML VIAL IV SCH ×3 (09:05→20:55)
[2022-12-04] MEDS: MAG SULF 1GM/100ML (MAG RUN) 1 GM in IV 1 EA IV SCH ×2 (09:05→11:08)
[2022-12-04] MEDS ORDERED: LR 1,000 ML IV SCH ×2 (10:20→10:25)
[2022-12-04 14:00] VITALS: BP 116/74; TEMP 97.3; O2SAT 98
[2022-12-04] MEDS: ASPIRIN 81MG ENTERIC TABLET PO SCH (14:28)
[2022-12-04] MEDS: ATORVASTATIN 20 MG TAB PO SCH (14:28)
[2022-12-04] MEDS: EZETIMIBE 10MG TABLET (ZETIA) PO SCH (14:28)
[2022-12-04] MEDS ORDERED: QUEtiapine FUMARATE 200 MG TAB PO SCH (14:59)
[2022-12-04 20:28] VITALS: BP 118/78; TEMP 97.5; O2SAT 99
[2022-12-05 06:04] VITALS: BP 102/65; TEMP 97.7; O2SAT 93
[2022-12-05] MEDS: INSULIN LISPRO (NovoLOG) PER UNIT SC SCH ×2 (07:30→12:05)
[2022-12-05 07:33] LABS: HEMATOCRIT 30.8 % (36.0-47.0); HEMOGLOBIN 9.7 g/dl (12.0-15.5); MEAN CORPUSCULAR HEMOGLOBIN 26.1 pg (27.0-33.0); MEAN CORPUSCULAR HGB CONC 31.5 g/dl (32.0-36.5); PLATELET COUNT, AUTOMATED 204 10^3/uL (150-450); RED BLOOD COUNT 3.71 10^6/uL (4.00-5.40); WHITE BLOOD COUNT 8.9 10^3/uL (4.0-10.0)
[2022-12-05 07:57] LABS: BLOOD UREA NITROGEN 14 MG/DL (9-23); CARBON DIOXIDE LEVEL 25 MMOL/L (20-31); CHLORIDE LEVEL 110 MMOL/L (98-107); CREATININE FOR GFR 1.04 MG/DL (0.55-1.30); GLOMERULAR FILTRATION RATE > 60.0 (>51); GLUCOSE, FASTING 121 MG/DL (60-100); MAGNESIUM LEVEL 1.7 MG/DL (1.8-2.4); POTASSIUM SERUM 4.3 MMOL/L (3.5-5.1); SODIUM LEVEL 143 MMOL/L (136-145)
[2022-12-05 08:17] LABS: ATYPICAL LYMPH 16 % (0-5); BASOPHILS 1 % (0-1); EOSINOPHILS 1 % (0-3); LYMPHOCYTES 37 % (16-44); MONOCYTES 3 % (0-5); NEUTROPHILS 42 % (28-66); PLATELET ESTIMATE NORMAL (NORMAL)
[2022-12-05] MEDS: METOCLOPRAMIDE INJ 10MG/2ML VIAL IV SCH (10:42)
[2022-12-05] MEDS: ENOXAPARIN 40MG/0.4ML SYRINGE (J1650 PER 10MG) SC SCH (10:43)
[2022-12-05] MEDS: PANTOPRAZOLE 40MG VIAL IV SCH (10:43)
[2022-12-05] MEDS: MAG SULF 1GM/100ML (MAG RUN) 1 GM in IV 1 EA IV SCH ×2 (10:44→12:06)
[2022-12-05] MEDS: ATORVASTATIN 20 MG TAB PO SCH (10:45)
[2022-12-05] MEDS: EZETIMIBE 10MG TABLET (ZETIA) PO SCH (10:46)
[2022-12-05 10:47] VITALS: BP 134/86
[2022-12-05] MEDS: METOPROLOL TART 12.5 MG PER 1/2 TAB PO SCH (10:47)
[2022-12-05] MEDS: ASPIRIN 81MG ENTERIC TABLET PO SCH (10:47)
[2022-12-05] MEDS ORDERED: PANT40TA29 PO ×2 (10:47→10:57)
[2022-12-05] MEDS: NICOTINE 21MG/24HR 1 EA TRANSDERMAL EXT SCH (10:59)
== END 2022-12-05 14:05 | disposition home or self-care (01) | DRG 241 ==
LOC: M ED 09:41 → M ED INP 13:04 → ENRESERV 14:13 → M MS5PR 15:30
PROVIDERS: ADMIT Internal Medicine; ATTEND Internal Medicine
DX: K29.70 Gastritis, unspecified, without bleeding (principal); N17.9 Acute kidney failure, unspecified; K31.84 Gastroparesis; I11.0 Hypertensive heart disease with heart failure; E11.43 Type 2 diabetes mellitus with diabetic autonomic (poly)neuropathy; I50.9 Heart failure, unspecified; J45.909 Unspecified asthma, uncomplicated; F14.21 Cocaine dependence, in remission; R63.4 Abnormal weight loss; F39 Unspecified mood [affective] disorder; E78.5 Hyperlipidemia, unspecified; Z79.82 Long term (current) use of aspirin; Z79.84 Long term (current) use of oral hypoglycemic drugs; Z79.899 Other long term (current) drug therapy; Z87.891 Personal history of nicotine dependence

== ENCOUNTER 2022-12-07 13:35 | Emergency (ER) | payer OTHER ==
[~2022-12-07] VITALS: Ht 149.9 cm; Wt 75.5 kg
[~2022-12-07 13:35] MED LIST changes: +EZET10TA21 PO; +NICO21DI38; +PANT40TA29 PO; +TORS100T PO
[2022-12-07 15:47] LABS: BASO % 0.4 % (0.0-1.0); EOS # 0.2 10^3/uL (0.0-0.5); EOS % 1.9 % (0.0-3.0); HEMATOCRIT 33.9 % (36.0-47.0); HEMOGLOBIN 10.9 g/dl (12.0-15.5); LYMPH # 4.2 10^3/uL (1.5-5.0); LYMPH % 42.7 % (24.0-44.0); MEAN CORPUSCULAR HEMOGLOBIN 26.3 pg (27.0-33.0); MEAN CORPUSCULAR HGB CONC 32.2 g/dl (32.0-36.5); MEAN CORPUSCULAR VOLUME 81.9 fl (80.0-96.0); MONO # 0.5 10^3/uL (0.0-0.8); MONO % 5.1 % (2.0-8.0); NEUTROPHILS # 4.9 10^3/uL (1.5-8.5); NEUTROPHILS % 49.6 % (36.0-66.0); PLATELET COUNT, AUTOMATED 236 10^3/uL (150-450); RED BLOOD COUNT 4.14 10^6/uL (4.00-5.40); WHITE BLOOD COUNT 9.8 10^3/uL (4.0-10.0)
[2022-12-07 15:50] LABS: INR 0.99; PARTIAL THROMBOPLASTIN TIME 29.8 SECONDS (24.8-34.2); PROTHROMBIN TIME 12.8 SECONDS (12.5-14.5)
[2022-12-07 15:57] LABS: ALBUMIN 3.2 G/DL (3.2-5.2); ALKALINE PHOSPHATASE 85 U/L (46-116); ALT/SGPT 24 U/L (7.0-40); AST/SGOT 50 U/L (<34); BILIRUBIN,DIRECT < 0.1 MG/DL (<0.4); BILIRUBIN,TOTAL 0.3 MG/DL (0.3-1.2); BLOOD UREA NITROGEN 10 MG/DL (9-23); CALCIUM LEVEL 8.5 MG/DL (8.5-10.1); CARBON DIOXIDE LEVEL 25 MMOL/L (20-31); CHLORIDE LEVEL 109 MMOL/L (98-107); CK-MB VALUE MASS < 1.0 NG/ML (<3.6); CPK CREATINE PHOSPHOKINASE 250 U/L (34-145); CREATININE FOR GFR 1.06 MG/DL (0.55-1.30); FREE T4 1.15 NG/DL (0.89-1.76); GLOMERULAR FILTRATION RATE > 60.0 (>51); GLUCOSE, FASTING 75 MG/DL (60-100); POTASSIUM SERUM 4.9 MMOL/L (3.5-5.1); SODIUM LEVEL 140 MMOL/L (136-145); THYROID STIMULATING HORMONE 0.865 uIU/ML (0.55-4.78); TOTAL PROTEIN 6.4 G/DL (5.7-8.2)
[2022-12-07 16:17] VITALS: O2SAT 97
[2022-12-07] MEDS ORDERED: FUROSEMIDE 40MG/4ML VIAL IV ONE (16:30)
[2022-12-07 17:24] LABS: CK-MB VALUE MASS < 1.0 NG/ML (<3.6)
[2022-12-07 17:25] LABS: CPK CREATINE PHOSPHOKINASE 221 U/L (34-145); MB/CK RELATIVE INDEX 0.45 (< OR =4)
[2022-12-07 19:13] VITALS: BP 148/87; TEMP 98.3; O2SAT 96
[2022-12-07 19:26] LABS: CK-MB VALUE MASS < 1.0 NG/ML (<3.6)
[2022-12-07 19:31] LABS: CPK CREATINE PHOSPHOKINASE 240 U/L (34-145); MB/CK RELATIVE INDEX 0.41 (< OR =4)
[2022-12-07] MEDS ORDERED: TORS100T PO (19:38)
== END 2022-12-07 20:05 | disposition home or self-care (01) ==
LOC: M ED 13:35
DX: R22.40 Localized swelling, mass and lump, unspecified lower limb (principal); I10 Essential (primary) hypertension; E11.9 Type 2 diabetes mellitus without complications; J45.909 Unspecified asthma, uncomplicated; Z86.79 Personal history of other diseases of the circulatory system; Z88.0 Allergy status to penicillin; Z88.8 Allergy status to other drugs, medicaments and biological substances; Z79.82 Long term (current) use of aspirin; Z79.4 Long term (current) use of insulin; Z79.02 Long term (current) use of antithrombotics/antiplatelets; Z79.899 Other long term (current) drug therapy
CPT/HCPCS: 71046; 80048; 80076; 82550; 82553; 83880; 84439; 84443; 85025; 85610; 85730; 93005; 93041; 93970; 94760; 96374; 99285; J1940

== ENCOUNTER → 2022-12-27 | Outpatient (REF) | payer OTHER ==
[2022-12-27 17:26] LABS: ALBUMIN 3.8 G/DL (3.2-5.2); ALKALINE PHOSPHATASE 107 U/L (46-116); ALT/SGPT 21 U/L (7.0-40); AST/SGOT 20 U/L (<34); BILIRUBIN,TOTAL 0.4 MG/DL (0.3-1.2); BLOOD UREA NITROGEN 17 MG/DL (9-23); CALCIUM LEVEL 9.5 MG/DL (8.5-10.1); CARBON DIOXIDE LEVEL 32 MMOL/L (20-31); CHLORIDE LEVEL 103 MMOL/L (98-107); CHOLESTEROL LEVEL 137 MG/DL (<200); CHOLESTEROL RISK RATIO 2.75 (<5); CREATININE FOR GFR 1.03 MG/DL (0.55-1.30); FERRITIN 191.4 NG/ML (7.3-270.7); GLOMERULAR FILTRATION RATE > 60.0 (>51); GLUCOSE, FASTING 59 MG/DL (60-100); HDL CHOLESTEROL 49.7 MG/DL (>40); IRON (FE) 71 UG/DL (50-170); LDL CHOLESTEROL 60.3 MG/DL (<100); NON-HDL-C 87.3 MG/DL; PERCENT SATURATION 23.4 % (13.2-45.0); POTASSIUM SERUM 4.1 MMOL/L (3.5-5.1); SODIUM LEVEL 142 MMOL/L (136-145); TOTAL IRON BINDING CAPACITY 304 UG/DL (250-425); TOTAL PROTEIN 7.2 G/DL (5.7-8.2); TRIGLYCERIDES LEVEL 135 MG/DL (<150)
[2022-12-27 17:27] LABS: FOLATE 6.4 NG/ML (>5.4); TOTAL 25(OH) VITAMIN D 34.1 NG/ML (20.0-100.0)
[2022-12-27 17:28] LABS: VITAMIN B12 LEVEL 426 PG/ML (211-911)
[2022-12-27 17:36] LABS: HEMOGLOBIN A1c 6.5 % (4.0-6.0)
[2022-12-27 17:57] LABS: HEMATOCRIT 42.6 % (36.0-47.0); HEMOGLOBIN 13.4 g/dl (12.0-15.5); MEAN CORPUSCULAR HEMOGLOBIN 26.4 pg (27.0-33.0); MEAN CORPUSCULAR HGB CONC 31.5 g/dl (32.0-36.5); MEAN CORPUSCULAR VOLUME 83.9 fl (80.0-96.0); PLATELET COUNT, AUTOMATED 288 10^3/uL (150-450); RED BLOOD COUNT 5.08 10^6/uL (4.00-5.40); WHITE BLOOD COUNT 12.1 10^3/uL (4.0-10.0)
[2022-12-27 20:09] LABS: ATYPICAL LYMPH 12 % (0-5); EOSINOPHILS 2 % (0-3); LYMPHOCYTES 31 % (16-44); METAMYELOCYTES 1 % (0-0); NEUTROPHILS 52 % (28-66); PLATELET ESTIMATE NORMAL (NORMAL)
[2022-12-27 20:13] LABS: BASO # 0.1 10^3/uL (0.0-0.2); BASO % 0.5 % (0.0-1.0); EOS # 0.2 10^3/uL (0.0-0.5); EOS % 1.6 % (0.0-3.0); LYMPH # 4.6 10^3/uL (1.5-5.0); LYMPH % 37.3 % (24.0-44.0); MONO # 0.6 10^3/uL (0.0-0.8); MONO % 5.2 % (2.0-8.0); NEUTROPHILS # 6.7 10^3/uL (1.5-8.5); NEUTROPHILS % 55.1 % (36.0-66.0)
== END ==
LOC: M SFHCADAM 14:27
PROVIDERS: ATTEND Physician Assistant
DX: K29.50 Unspecified chronic gastritis without bleeding (principal); I50.22 Chronic systolic (congestive) heart failure; J45.30 Mild persistent asthma, uncomplicated; E55.9 Vitamin D deficiency, unspecified; E11.9 Type 2 diabetes mellitus without complications; F33.2 Major depressive disorder, recurrent severe without psychotic features

== ENCOUNTER → 2023-01-16 | Outpatient (REF) | payer OTHER ==
[2023-01-16 14:20] LABS: BASO # 0.1 10^3/uL (0.0-0.2); BASO % 0.4 % (0.0-1.0); EOS # 0.2 10^3/uL (0.0-0.5); EOS % 1.1 % (0.0-3.0); HEMATOCRIT 40.9 % (36.0-47.0); HEMOGLOBIN 12.8 g/dl (12.0-15.5); LYMPH % 19.1 % (24.0-44.0); MEAN CORPUSCULAR HEMOGLOBIN 26.3 pg (27.0-33.0); MEAN CORPUSCULAR HGB CONC 31.3 g/dl (32.0-36.5); MEAN CORPUSCULAR VOLUME 84.2 fl (80.0-96.0); MONO # 0.6 10^3/uL (0.0-0.8); NEUTROPHILS # 11.8 10^3/uL (1.5-8.5); PLATELET COUNT, AUTOMATED 328 10^3/uL (150-450); RED BLOOD COUNT 4.86 10^6/uL (4.00-5.40); WHITE BLOOD COUNT 15.7 10^3/uL (4.0-10.0)
== END ==
LOC: M SFHCADAM 10:01
PROVIDERS: ATTEND Physician Assistant
DX: D72.829 Elevated white blood cell count, unspecified (principal)

== ENCOUNTER 2024-04-22 19:20 | Emergency (ER) | payer MEDICAID, OTHER ==
[~2024-04-22] VITALS: Ht 149.9 cm; Wt 62.1 kg
[~2024-04-22 19:20] MED LIST changes: +DOXY-441; -DOXY-443; -OLAN15TA13 PO; +OLAN15TA69 PO
[2024-04-22 20:00] LABS: BASO # 0.1 10^3/uL (0.0-0.2); BASO % 0.6 % (0.0-1.0); EOS # 0.2 10^3/uL (0.0-0.5); EOS % 2.2 % (0.0-3.0); HEMATOCRIT 49.1 % (36.0-47.0); HEMOGLOBIN 15.6 g/dl (12.0-15.5); LYMPH # 3.5 10^3/uL (1.5-5.0); LYMPH % 43.4 % (24.0-44.0); MEAN CORPUSCULAR HEMOGLOBIN 25.3 pg (27.0-33.0); MEAN CORPUSCULAR HGB CONC 31.8 g/dl (32.0-36.5); MEAN CORPUSCULAR VOLUME 79.6 fl (80.0-96.0); MONO # 0.5 10^3/uL (0.0-0.8); MONO % 5.9 % (2.0-8.0); NEUTROPHILS # 3.9 10^3/uL (1.5-8.5); NEUTROPHILS % 47.7 % (36.0-66.0); PLATELET COUNT, AUTOMATED 252 10^3/uL (150-450); RED BLOOD COUNT 6.17 10^6/uL (4.00-5.40); WHITE BLOOD COUNT 8.1 10^3/uL (4.0-10.0)
[2024-04-22 20:16] LABS: ERYTHROCYTE SEDIMENTATION RATE 51 mm/hr (0-30)
[2024-04-22 20:49] LABS: CK-MB VALUE MASS < 1.0 NG/ML (<3.6)
[2024-04-22 20:51] LABS: ALKALINE PHOSPHATASE 105 U/L (35-104); ALT/SGPT 17 U/L (7.0-40); AST/SGOT 18 U/L (<34); BILIRUBIN,TOTAL 0.5 MG/DL (0.3-1.2); BLOOD UREA NITROGEN 29 MG/DL (9-23); CALCIUM LEVEL 9.7 MG/DL (8.5-10.1); CARBON DIOXIDE LEVEL 30 MMOL/L (20-31); CHLORIDE LEVEL 100 MMOL/L (98-107); CPK CREATINE PHOSPHOKINASE 179 U/L (34-145); CREATININE FOR GFR 1.13 MG/DL (0.55-1.30); GLOMERULAR FILTRATION RATE > 60.0 (>51); GLUCOSE, FASTING 113 MG/DL (60-100); MB/CK RELATIVE INDEX 0.55 (< OR =4); POTASSIUM SERUM 3.8 MMOL/L (3.5-5.1); SODIUM LEVEL 138 MMOL/L (136-145); TOTAL PROTEIN 7.6 G/DL (5.7-8.2)
[2024-04-22 23:22] LABS: KETONE, URINE AUTO RFX NEGATIVE (NEGATIVE); LEUKOCYTE ESTERASE UR AUTO RFX NEGATIVE (NEGATIVE); NITRITE, URINE AUTO RFX NEGATIVE (NEGATIVE); RBC, URINE AUTO RFX 0 /HPF (0-3); SQUAM EPITHELIAL CELL UR AURFX 0 /HPF (0-6); WBC, URINE AUTO RFX 0 /HPF (0-3)
[2024-04-22 23:36] LABS: INR 0.84; PROTHROMBIN TIME 11.9 SECONDS (12.5-14.5)
[2024-04-23 00:23] VITALS: BP 111/58; TEMP 96.8; O2SAT 97
== END 2024-04-23 00:30 | disposition home or self-care (01) ==
LOC: M ED 19:20
DX: R07.89 Other chest pain (principal); M54.9 Dorsalgia, unspecified; R22.33 Localized swelling, mass and lump, upper limb, bilateral; I11.0 Hypertensive heart disease with heart failure; E11.9 Type 2 diabetes mellitus without complications; J45.909 Unspecified asthma, uncomplicated; Z79.82 Long term (current) use of aspirin; Z79.84 Long term (current) use of oral hypoglycemic drugs; Z79.899 Other long term (current) drug therapy; Z88.0 Allergy status to penicillin; Z88.8 Allergy status to other drugs, medicaments and biological substances

== ENCOUNTER → 2024-07-31 | Outpatient (REF) | payer OTHER, MEDICAID ==
[2024-07-31 19:06] LABS: HEMATOCRIT 44.4 % (36.0-47.0); HEMOGLOBIN 14.2 g/dl (12.0-15.5); MEAN CORPUSCULAR HEMOGLOBIN 26.5 pg (27.0-33.0); PLATELET COUNT, AUTOMATED 308 10^3/uL (150-450); RED BLOOD COUNT 5.35 10^6/uL (4.00-5.40); WHITE BLOOD COUNT 8.9 10^3/uL (4.0-10.0)
[2024-07-31 19:36] LABS: ALBUMIN 3.8 G/DL (3.2-5.2); ALKALINE PHOSPHATASE 115 U/L (35-104); ALT/SGPT 16 U/L (7.0-40); AST/SGOT 19 U/L (<34); BILIRUBIN,TOTAL 0.3 MG/DL (0.3-1.2); BLOOD UREA NITROGEN 18 MG/DL (9-23); CALCIUM LEVEL 9.2 MG/DL (8.5-10.1); CARBON DIOXIDE LEVEL 26 MMOL/L (20-31); CHLORIDE LEVEL 105 MMOL/L (98-107); CHOLESTEROL LEVEL 196 MG/DL (<200); CREATININE FOR GFR 0.85 MG/DL (0.55-1.30); GLOMERULAR FILTRATION RATE 79.9 (>51); GLUCOSE, FASTING 98 MG/DL (60-100); HDL CHOLESTEROL 67.5 MG/DL (>40); HEPATITIS B SURFACE ANTIBODY NEGATIVE (POSITIVE); LDL CHOLESTEROL 102.1 MG/DL (<100); NON-HDL-C 128.5 MG/DL; POTASSIUM SERUM 4.6 MMOL/L (3.5-5.1); SODIUM LEVEL 139 MMOL/L (136-145); THYROID STIMULATING HORMONE 1.331 uIU/ML (0.55-4.78); TOTAL PROTEIN 7.4 G/DL (5.7-8.2); TRIGLYCERIDES LEVEL 132 MG/DL (<150)
[2024-07-31 19:40] LABS: ANISOCYTOSIS 1+; BASOPHILS 1 % (0-1); EOSINOPHILS 3 % (0-3); LYMPHOCYTES 59 % (16-44); MONOCYTES 6 % (0-5); NEUTROPHILS 31 % (28-66); PLATELET ESTIMATE NORMAL (NORMAL)
[2024-07-31 21:48] LABS: HEMOGLOBIN A1c 5.9 % (4.0-6.0)
== END ==
LOC: M LAB REF 17:59
PROVIDERS: ATTEND Nurse Practitioner Family
DX: E11.69 Type 2 diabetes mellitus with other specified complication (principal); E78.5 Hyperlipidemia, unspecified; I50.42 Chronic combined systolic (congestive) and diastolic (congestive) heart failure; I10 Essential (primary) hypertension; Z78.9 Other specified health status

== ENCOUNTER → 2024-08-27 | Outpatient (CLI) | payer MEDICAID | LOC: M RAD 13:14 | PROVIDERS: ATTEND Nurse Practitioner Family | DX: E04.1 Nontoxic single thyroid nodule (principal) ==

== ENCOUNTER → 2025-01-21 | Outpatient (CLI) | payer MEDICAID, OTHER ==
[~2025-01-21] MED LIST changes: +ALBU8.5H INH; +CYCL5TAB4 PO; +DULO1CAP4 PO; -EZET10TA21 PO; +EZET10TA57 PO; +FLUTISP NARES; +HYDR-643 PO; +ISOVUE-370 76% 100 ML VIAL As Ordered ONE; +JARD1TAB PO; +MULT25CA2 PO; -NICO21DI38; +NICO21DI38 TD; +SALI0.652 NARES; +SUMA25TA3 PO
[2025-01-21 09:32] LABS: CREATININE FOR GFR 0.9 MG/DL (0.55-1.30); GLOMERULAR FILTRATION RATE 74.6 (>51)
== END ==
LOC: M RAD 08:30
PROVIDERS: ATTEND Otolaryngology
DX: R13.10 Dysphagia, unspecified (principal); R49.0 Dysphonia; E04.1 Nontoxic single thyroid nodule
CPT/HCPCS: 36415; 70491; 82565; 84520; Q9967